=== PATIENT | female | born 1940 | race Caucasian/White ===

== ENCOUNTER 2017-05-07 10:22 | Inpatient (IN) | payer MEDICARE, BC ==
--- NOTE | 2017-05-07 10:25 | EDM.PDOC ---
ED HPI GENERAL MEDICAL PROBLEM - General Stated Complaint: IN BY AMBULANCE Time Seen by Provider: 05/07/17 10:00 Source of Information: Reports: Patient, EMS History Limitations: Reports: No Limitations - History of Present Illness INITIAL COMMENTS - FREE TEXT/NARRATIVE: This 76 yo female patient was brought to the ED by [facility] service due to a fall down 3 steps. EMS report that the patient reported a loss of consciousness for about 15 minutes, but was up walking around with assistance. The patient reports pain in the left side of her head, in her neck, in her left shoulder, in her upper back and in the left side of her chest. The patient reports she was taking out the garbage when she fell down the steps in her garage. The patient arrived with a KED applied for comfort and immobilization of her neck. The patient did not have c-collar in place. The patient was able to move all extremities and was alert and oriented x3. Onset: Today Duration: Minutes: Location: Reports: Head, Neck, Chest, Back (upper back ), Upper Extremity, Left (shoulder) Quality: Reports: Ache, Sharp Severity: Severe Improves with: Reports: Rest Worsens with: Reports: Breathing Context: Reports: Trauma (fall down 3 steps with possible loss of consciousness) Middle Chest Pain Score (Numeric/FACES): 10 - Related Data Allergies Allergy/AdvReac Type Severity Reaction Status Date / Time amoxicillin trihydrate Allergy Rash Verified 05/07/17 11:02 [From Augmentin] metformin Allergy Diarrhea Verified 05/07/17 11:02 oxytetracycline Allergy Rash Verified 05/07/17 11:02 [From Terramycin] oxytetracycline HCl Allergy Rash Verified 05/07/17 11:02 [From Terramycin] potassium clavulanate Allergy Rash Verified 05/07/17 11:02 [From Augmentin] Past Medical History HEENT History: Reports: Impaired Vision Cardiovascular History: Reports: High Cholesterol, Hypertension Gastrointestinal History: Reports: GERD Musculoskeletal History: Reports: Other (See Below) Other Musculoskeletal History: bursitis to B/L knee Endocrine/Metabolic History: Reports: Diabetes, Type II Oncologic (Cancer) History: Reports: Breast - Infectious Disease History Infectious Disease History: Reports: Shingles - Past Surgical History GI Surgical History: Reports: Appendectomy, Cholecystectomy Female Surgical History: Reports: Hysterectomy Oncologic Surgical History: Reports: Mastectomy Social & Family History - Tobacco Use Smoking Status *Q: Never Smoker Second Hand Smoke Exposure: No - Recreational Drug Use Recreational Drug Use: No Review of Systems - Review of Systems Review Of Systems: ROS reveals no pertinent complaints other than HPI. ED EXAM, GENERAL - Physical Exam Exam: See Below Exam Limited By: No Limitations General Appearance: Alert, WD/WN, Moderate Distress Eye Exam: Bilateral Eye: EOMI, Normal Inspection, PERRL Ears: Normal External Exam, Normal Canal, Hearing Grossly Normal Nose: Normal Inspection, Normal Mucosa, No Blood Throat/Mouth: Normal Inspection, Normal Lips, Normal Oropharynx, Normal Voice, No Airway Compromise Head: Other (tenderness to the left occipital and posterior scalp) Neck: Tender Lateral, Tender Midline Respiratory/Chest: No Respiratory Distress, Lungs Clear, Other (generalized chest wall tenderness) Cardiovascular: Normal Peripheral Pulses, Regular Rate, Rhythm, No Edema, No Gallop, No JVD, No Murmur, No Rub GI/Abdominal: Normal Bowel Sounds, Soft, Non-Tender, No Organomegaly, No Distention (Female) Exam: Deferred Rectal (Female) Exam: Deferred Back Exam: Paraspinal Tenderness (upper back), Vertebral Tenderness (upper back) Extremities: Normal Range of Motion, Non-Tender, Normal Capillary Refill, Arm Pain (left shoulder), Limited Range of Motion (due to left shoulder pain) Neurological: Alert, CN II-XII Intact, Normal Cognition, Other (GCS - 15) Psychiatric: Normal Affect Skin Exam: Warm, Dry, Intact, Normal Color, No Rash Lymphatic: No Adenopathy Course - Orders/Labs/Meds Orders: Active Orders 24 hr Category Date Time Status Chest wo Cont [CT] Urgent Exams 05/07/17 10:26 Ordered Labs: Laboratory Tests 05/07/17 05/07/17 05/07/17 Range/Units 10:35 10:35 10:49 WBC 9.7 (5.0-10.0) 10^3/uL RBC 4.17 L (4.2-5.4) 10^6/uL Hgb 12.3 (12.0-16.0) g/dL Hct 36.2 L (37.0-47.0) % MCV 86.8 (80-100) fL MCH 29.5 (27.0-34.0) pg MCHC 34.0 (33.0-35.0) g/dL Plt Count 174 (150-450) 10^3/uL Neut % (Auto) 78.9 H (42.2-75.2) % Lymph % (Auto) 13.6 L (20.5-50.1) % [place] % (Auto) 6.3 (2-8) % Eos % (Auto) 1.0 (1.0-3.0) % Baso % (Auto) 0.2 (0.0-1.0) % Sodium 139 (135-145) mmol/L Potassium 4.0 (3.6-5.0) mmol/L Chloride 101 (101-111) mmol/L Carbon Dioxide 28.0 (21.0-31.0) mmol/L Anion Gap 14.0 BUN 14 (7-18) mg/dL Creatinine 0.8 (0.6-1.3) mg/dL Est Cr Clr Drug Dosing 55.13 mL/min Estimated GFR (MDRD) > 60 BUN/Creatinine Ratio 17.50 Glucose 212 H (74-105) mg/dL POC Glucose 204 H (83-110) mg/dl Calcium 9.8 (8.4-10.2) mg/dl Total Bilirubin 0.6 (0.2-1.0) mg/dL AST 66 H (10-42) IU/L ALT 57 (10-60) IU/L Alkaline Phosphatase 53 (42-121) IU/L Total Protein 6.8 (6.7-8.2) g/dl Albumin 3.9 (3.2-5.5) g/dl Globulin 2.9 Albumin/Globulin Ratio 1.34 Meds: Medications Discontinued Medications Generic Name Dose Route Start Last Admin Trade Name Freq PRN Reason Stop Dose Admin Morphine Sulfate 2 mg 05/07/17 10:36 05/07/17 10:40 Morphine IVPUSH 05/07/17 10:37 2 mg ONETIME ONE Administration Morphine Sulfate 2 mg 05/07/17 11:21 05/07/17 11:26 Morphine IVPUSH 05/07/17 11:22 2 mg ONETIME ONE Administration - Re-Assessments/Exams Free Text/Narrative Re-Assessment/Exam: 05/07/17 10:40 While the patient was in CT, it became necessary to remove the KED and the padding behind the patient's head and neck. The KED was loosened and a C-collar was placed for support of the patient's c-spine. Departure - Departure Time of Disposition: 11:38 Disposition: Admitted As Inpatient 65 Condition: Fair Clinical Impression: Pneumothorax on left, Fall from ground level Left rib fracture Qualifiers: Encounter type: initial encounter Rib fracture type: single rib Fracture type: closed Qualified Code(s): S22.32XA - Fracture of one rib, left side, initial encounter for closed fracture Contusion of forehead Qualifiers: Encounter type: initial encounter Qualified Code(s): S00.83XA - Contusion of other part of head, initial encounter Back pain, thoracic Qualifiers: Chronicity: acute Back pain laterality: midline Qualified Code(s): M54.6 - Pain in thoracic spine - Discharge Information Care Plan Goals: Discussed the examination, lab and CT results with Dr. Dickey. Dr. Dickey accepted the patient for continued treatment as an inpatient at [facility] in [place]. - My Orders Last 24 Hours: My Active Orders 05/07/17 10:26 Chest wo Cont [CT] Urgent - Assessment/Plan Last 24 Hours: My Active Orders 05/07/17 10:26 Chest wo Cont [CT] Urgent
[2017-05-07] MEDS ORDERED: Morphine 2 MG/ML Syringe IVPUSH ONE ×2 (10:36→11:21)
--- NOTE | 2017-05-07 10:59 | CT ---
CLINICAL HISTORY: 74-year-old female with loss of consciousness associated with fall (trauma left la e of head, neck and upper chest). SCAN TECHNIQUE: Volume acquisition of data from an emergency unenhanced CT scan of the head obtained with the patient lying supine on the Siemens multislice CT scanner [place], [place]. Motion artifact but all data archived in the PACS system for storage, and study (bone/ brain windows). INTERPRETATION: 1. Uniformly thick bony calvarium without sign of skull fracture, underlying brain contusion or epidu ral/subdural hematoma. 2. Extensive multi-infarct ischemic lesions scattered throughout the periventricular white matter of both cerebral hemispheres. 3. Age-appropriate atrophy with underlying mirror-image normal ventricular system. 4. Physiologic midline pineal and symmetric choroid plexus calcifications. 5. No supratentorial or posterior fossa mass lesion. No hydrocephalus. 6. No sign of acute intracerebral/intraventricular/subarachnoid bleed. 7. Paranasal and mastoid sinuses symmetrically clear. CONCLUSION: Extensive multi-infarct ischemic disease. No sign of acute skull fracture or closed head injury.
[2017-05-07 11:03] LABS: CHLORIDE,CL 101 mmol/L (101-111); SODIUM,NA 139 mmol/L (135-145)
--- NOTE | 2017-05-07 11:11 | CT ---
CLINICAL HISTORY: 76-year-old female injured in a fall (15 minutes loss of consciousness this patient who injured left side of head and neck). SCAN TECHNIQUE: Volume acquisition of data from an unenhanced CT scan of the cervical spine obtained with the patient lying supine on the Siemens multislice scanner [facility]. All data archived in the PACS system for storage, reformatting and study. INTERPRETATION: Normal height and alignment of the 7 cervical (exaggerated lordosis) and first 2 thor acic vertebra. No sign of prevertebral soft tissue swelling, cervical fracture, spondylolisthesis or jumped locked f acet. Chronic reactive sclerosis of the articulating facets posteriorly, bilaterally. No basal skull fracture. TMJs unremarkable. Medial clavicles unremarkable but there appears to be *ab normal infraclavicular subcutaneous air present on the left. CONCLUSION: No cervical fracture or dislocation. Abnormal air collection infraclavicular on the left.
--- NOTE | 2017-05-07 11:20 | CT ---
CLINICAL HISTORY: 76-year-old female who injured left side head, neck and upper thorax in a fall (los s of consciousness). SCAN TECHNIQUE: Volume acquisition of data from an emergency unenhanced CT scan of the thoracic spine and thorax obtained while the patient was lying supine on the Siemens multislice scanner [facility]. All data archived in the PACS system for storage, reformatting ax ial/sagittal/coronal planes and study. INTERPRETATION: Abnormal. 1. Abnormal collection of air in the superior mediastinum extending around the first costochondral ju ncture and up under the medial aspect of the ipsilateral left clavicle. 2. *Tiny apical pneumothorax, on the left, with underlying ipsilateral left-sided lingular atelectasi s. No infiltrates. 3. Nondisplaced fracture anterolateral left second rib. No other obvious rib fracture this patient wh o has had previous left mastectomy (ipsilateral left breast prosthesis anterior chest wall) 4. Exaggerated cervical lordosis and severe kyphosis osteoporotic patient with multilevel disc diseas e and chronic hypertrophic spondylosis of the spine. No sign of thoracic fracture or spondylolisthesi s. No paraspinal soft tissue mass or hematoma. 5. Old trauma distal end of the right clavicle with arthritis at the acromioclavicular joint. No acut e left clavicular fracture or dislocation. No scapular fractures or sign of humeral head fracture/gle nohumeral dislocation either shoulder. 6. Calcifications arch of the ectatic aorta. Normal cardiac silhouette (no pericardial effusion). No alveolar edema or pleural effusion. 7. Large hiatus hernia incarcerated in the lower middle mediastinum. Cholecystectomy. Upper abdominal viscera unremarkable.
--- NOTE | 2017-05-07 11:53 | CT ---
CLINICAL HISTORY: 76-year-old female injured in a fall (loss of consciousness), i.e., trauma left la e of head, neck and upper chest. SCAN TECHNIQUE: Volume acquisition of data from an emergency unenhanced CT scan of the chest (bony th orax, lungs and mediastinum) obtained while the patient was lying supine on the Siemens multislice [place], [place]. All data archived in the PACS system for [employer], reformatting and study (bone, lung and mediastinal windows). INTERPRETATION: Abnormal. 1. Exaggerated cervical lordosis, severe kyphoscoliosis dorsal spine, signs of multilevel disc diseas e and chronic hypertrophic arthritic changes. Osteoporosis and insufficiency fractures several adjace nt mid thoracic vertebra (T7 vertebra most compressed but old and unchanged since lateral comparison film 09 October 2011). No fracture left clavicle and the left shoulder girdle is intact. 2. Left mastectomy (anterior chest wall prosthesis) 3. *Acute nondisplaced anterior left second rib fracture with some surrounding subcutaneous emphysema and tiny ipsilateral left apical pneumothorax. 4. Normal cardiac silhouette without cephalization of vascular flow, signs of alveolar edema or depen dent pleural effusion. 5. No pericardial effusion. No lung mass, hilar lymphadenopathy or focal lobar pneumonia. 6. Upper abdominal viscera unremarkable.
[2017-05-07] MEDS ORDERED: traMADol 50 MG Tab PO PRN (12:06)
[2017-05-07] MEDS ORDERED: Cyclobenzaprine 10 MG Tab PO PRN (12:07)
[2017-05-07] MEDS ORDERED: Acetaminophen 325 MG Tab PO PRN (12:09)
[2017-05-07] MEDS ORDERED: Ondansetron 4 MG/2 ML SDV IVPUSH PRN (12:10)
[2017-05-07] MEDS ORDERED: Sodium Chloride 0.9% 10 ML Syringe FLUSH PRN (12:10)
[2017-05-07] MEDS ORDERED: Insulin Aspart 100 Units/ML 3 ML Pen SUBCUT SCH (12:15)
--- NOTE | 2017-05-07 12:21 | PCM.HP ---
H&P History of Present Illness - General Date of Service: 05/07/17 Admit Problem/Dx: Admission Diagnosis/Problem Admission Diagnosis/Problem Fall - History of Present Illness Initial Comments - Free Text/Narative: The patient is a 76-year-old lady with a history of diabetes, hypertension, dyslipidemia, breast cancer. The patient has been in good health recently. She was taking the trash out to the attached garage. She lost balance and fell down from the steps. She landed on hard concrete after falling about 3 steps height. She probably lost consciousness because when she woke up on the ground and checked at that time she thinks she lost about 15 minutes. She was not able to get up on her own because of diffuse pain. She was able to call friends. When friend has arrived she was helped up from the floor and had into the house. She was outside in an unheated garage probably about 20-30 minutes wearing on his sweater. Plan friend and family arrived she was able to move all extremities, speech was clear. She was complaining of left-sided headache and left shoulder pain. She was brought into the emergency room. She had multiple CTs. No ambulance services are available to trauma Center in [place] due to weather. She is complaining of spasm-like pain in the back, pain in the left shoulder. Middle Chest Pain Score (Numeric/FACES): 10 - Related Data Allergies/Adverse Reactions: Allergies Allergy/AdvReac Type Severity Reaction Status Date / Time amoxicillin trihydrate Allergy Rash Verified 05/07/17 12:19 [From Augmentin] metformin Allergy Diarrhea Verified 05/07/17 12:19 oxytetracycline Allergy Rash Verified 05/07/17 12:19 [From Terramycin] oxytetracycline HCl Allergy Rash Verified 05/07/17 12:19 [From Terramycin] potassium clavulanate Allergy Rash Verified 05/07/17 12:19 [From Augmentin] Home Medications: Home Meds Amitriptyline [Elavil] 12.5 mg PO BEDTIME 05/07/17 [History] Aspirin [Adult Low Dose Aspirin EC] 81 mg PO DAILY 05/07/17 [History] Insulin Aspart [NovoLOG] 20 units SUBCUT TIDMEALS 05/07/17 [History] Insulin Glarg,Human.Rec.Analog [Lantus Solostar] 16 units SUBCUT BEDTIME [History] Omeprazole 20 mg PO DAILY 05/07/17 [History] Tamoxifen Citrate 20 mg PO DAILY 05/07/17 [History] Valsartan/Hydrochlorothiazide [Valsartan-Hctz 320-25 mg Tab] 0.5 each PO DAILY 05/07/17 [History] atorvaSTATin [Lipitor] 10 mg PO BEDTIME 05/07/17 [History] Past Medical History HEENT History: Reports: Impaired Vision Cardiovascular History: Reports: High Cholesterol, Hypertension Gastrointestinal History: Reports: GERD Musculoskeletal History: Reports: Other (See Below) Other Musculoskeletal History: bursitis to B/L knee Endocrine/Metabolic History: Reports: Diabetes, Type II Oncologic (Cancer) History: Reports: Breast - Infectious Disease History Infectious Disease History: Reports: Shingles - Past Surgical History GI Surgical History: Reports: Appendectomy, Cholecystectomy Female Surgical History: Reports: Hysterectomy Oncologic Surgical History: Reports: Mastectomy Social & Family History - Family History Neurological: Reports: CVA - Tobacco Use Smoking Status *Q: Never Smoker Second Hand Smoke Exposure: No - Recreational Drug Use Recreational Drug Use: No H&P Review of Systems - Review of Systems: Review Of Systems: See Below General: Denies: Fever, Chills Pulmonary: Denies: Shortness of Breath Cardiovascular: Reports: Chest Pain (Left upper shoulder area) Gastrointestinal: Denies: Abdominal Pain Genitourinary: Denies: Dysuria Musculoskeletal: Reports: Shoulder Pain (Left side), Back Pain Neurological: Denies: Confusion, Dizziness Exam - Exam Exam: See Below - Vital Signs Weight: 74.843 kg - Exam General: Alert, Oriented HEENT: EOMI Neck: Supple Lungs: Clear to Auscultation, Normal Respiratory Effort Cardiovascular: Regular Rate, Regular Rhythm Extremities: Pedal Edema (Trace bilateral) Skin: Warm, Dry Neuro Extensive - Mental Status: Alert, Oriented x3, Normal Mood/Affect, Normal Cognition, Memory Intact Neuro Extensive - Motor, Sensory, Reflexes: No: Abnormal Motor, Motor/Sensory Deficits Psychiatric: Alert, Normal Affect, Normal Mood - Patient Data Result Diagrams: 05/07/17 10:35 05/07/17 10:35 Imaging Impressions Last 24 hrs: CT of the head: extensive multi-infarct ischemic disease no sign of acute skull fracture or closed head injury CT of the cervical spine without contrast showed no cervical fracture or dislocation. Abnormal air collection infraclavicular on the left. CT of the chest without contrast osteoporosis and insufficiency fractures several adjacent mid thoracic vertebra. T7 most compressed, appears old and unchanged since comparison 2011. Acute nondisplaced anterior left second rib fracture with some surrounding subcutaneous emphysema and tiny ipsilateral left apical pneumothorax. Thoracic spine abnormal collection of air in the superior mediastinum extending around the first costochondral juncture and off under the medial aspect of the ipsilateral left clavicle. Nondisplaced fracture of the anterolateral left second rib with tiny apical pneumothorax. Large hiatal hernia." *Q Meaningful Use (ADM) - VTE *Q VTE Criteria *Q: - Stroke *Q Stroke Criteria *Q: - AMI *Q AMI Criteria *Q: - Problem List (1) Contusion of forehead SNOMED Code(s): 470280792 ICD Code: S00.83XA - CONTUSION OF OTHER PART OF HEAD, INITIAL ENCOUNTER Status: Acute Current Visit: Yes Qualifiers: Encounter type: initial encounter Qualified Code(s): S00.83XA - Contusion of other part of head, initial encounter (2) Left rib fracture SNOMED Code(s): 30176088 ICD Code: S22.32XA - FRACTURE OF ONE RIB, LEFT SIDE, INIT FOR CLOS FX Status: Acute Current Visit: Yes Qualifiers: Encounter type: initial encounter Rib fracture type: single rib Fracture type: closed Qualified Code(s): S22.32XA - Fracture of one rib, left side, initial encounter for closed fracture (3) Pneumothorax on left SNOMED Code(s): 416014035 ICD Code: J93.9 - PNEUMOTHORAX, UNSPECIFIED Status: Acute Current Visit: Yes (4) Back pain SNOMED Code(s): 927290725 ICD Code: M54.9 - DORSALGIA, UNSPECIFIED Status: Acute Current Visit: No Qualifiers: Back pain location: low back pain Chronicity: acute Back pain laterality : unspecified Sciatica presence: without sciatica Qualified Code(s): M54.5 - Low back pain Problem List Initiated/Reviewed/Updated: Yes Orders Last 24hrs: Active Orders 24 hr Category Date Time Status Patient Status [ADT] Routine ADT 05/07/17 12:10 Ordered Antiembolic Devices [RC] PER UNIT ROUTINE Care 05/07/17 12:12 Ordered Oxygen Therapy [RC] PRN Care 05/07/17 12:10 Ordered Peripheral IV Care [RC] . DIRECTED Care 05/07/17 12:13 Ordered Up With Assistance [RC] ASDIRECTED Care 05/07/17 12:10 Ordered VTE/DVT Education [RC] PER UNIT ROUTINE Care 05/07/17 12:10 Ordered Vital Signs [RC] Q4H Care 05/07/17 12:10 Ordered OT Evaluation and Treatment [CONS] Routine Cons 05/07/17 12:07 Active PT Evaluation and Treatment [CONS] Routine Cons 05/07/17 12:07 Active Consistent Carbohydrate Diet [DIET] Diet 05/07/17 Dinner Ordered Chest 2V [CR] Urgent Exams 05/07/17 12:08 Ordered BASIC METABOLIC PANEL,BMP [CHEM] AM Lab 05/08/17 05:15 Ordered CBC WITH AUTO DIFF [HEME] AM Lab 05/08/17 05:15 Ordered CK W CKMB [CHEM] AM Lab 05/08/17 05:11 Ordered Acetaminophen [Tylenol] Med 05/07/17 12:09 Active 650 mg PO .Q4 PRN Cyclobenzaprine [Flexeril] Med 05/07/17 12:07 Active 10 mg PO .Q6 PRN Docusate Sodium [Colace] Med 05/07/17 12:10 Ordered 100 mg PO BID PRN Heparin Sodium Med 05/07/17 21:00 Ordered 5,000 units SUBCUT Q8HR Ondansetron [Zofran] Med 05/07/17 12:10 Ordered 4 mg IVPUSH Q6H PRN Sodium Chloride 0.9% [Saline Flush] Med 05/07/17 12:10 Ordered 10 ml FLUSH ASDIRECTED PRN Temazepam [Restoril] Med 05/07/17 12:10 Ordered 15 mg PO BEDTIME PRN traMADol [Ultram] Med 05/07/17 12:06 Active 50 mg PO .Q6H PRN Peripheral IV Insertion Adult [OM.PC] Routine Oth 05/07/17 12:10 Ordered Saline Lock Insert [OM.PC] Routine Oth 05/07/17 12:10 Ordered Sequential Compression Device [OM.PC] Per Unit Routine Oth 05/07/17 12:12 Ordered Resuscitation Status Routine Resus Stat 05/07/17 12:10 Ordered Medication Orders Acetaminophen (Tylenol) 650 mg PO .Q4 PRN PRN Reason: pain, fever Cyclobenzaprine HCl (Flexeril) 10 mg PO .Q6 PRN PRN Reason: Muscle Spasm Docusate Sodium (Colace) 100 mg PO BID PRN PRN Reason: Constipation Heparin Sodium (Porcine) (Heparin Sodium) 5,000 units SUBCUT Q8HR GO Insulin Aspart (Novolog) 0 unit SUBCUT TIDAC GO PRN Reason: Protocol Insulin Aspart (Novolog) 18 unit SUBCUT .QAC+HS GO Ondansetron HCl (Zofran) 4 mg IVPUSH Q6H PRN PRN Reason: Nausea/Vomiting Sodium Chloride (Saline Flush) 10 ml FLUSH ASDIRECTED PRN PRN Reason: Keep Vein Open Temazepam (Restoril) 15 mg PO BEDTIME PRN PRN Reason: Sleep Tramadol HCl (Ultram) 50 mg PO .Q6H PRN PRN Reason: Pain Assessment/Plan Comment:: Fall Likely resulting in loss of consciousness. Trauma due to fall resulting in left second rib fracture with associated pneumothorax, subcutaneous air. We'll monitor the patient closely. Repeat x-ray of the chest in the morning to evaluate size of pneumothorax. Treat with pain medication, physical and occupational therapy evaluation and treatment Diabetes Continue Lantus and NovoLog regimen Follow blood sugars Hypertension Treat with Losartan and hydrochlorothiazide Dyslipidemia Continue Lipitor Osteoporosis with prior vertebral fracture Start calcium and vitamin D History of breast cancer Continue tamoxifen DVT prophylaxis Will be with subcutaneous heparin Delayed administration of the first dose until this evening to make sure that there is no neurological deficit or bleeding developing.
[2017-05-07] MEDS: Acetaminophen 325 MG Tab PO PRN (15:36)
[2017-05-07] MEDS: Calcium Carbonate/Vitamin D3 1250 MG-200 Unit Tab PO SCH (17:41)
[2017-05-07] MEDS: Insulin Aspart 100 Units/ML 3 ML Pen SUBCUT SCH ×3 (17:41→23:48)
[2017-05-07] MEDS ORDERED: Heparin Sodium 5,000 Units/ML Vial SUBCUT SCH (21:00)
[2017-05-07] MEDS ORDERED: Insulin Detemir 100 Units/ML 3 ML Pen SUBCUT SCH (21:00)
[2017-05-07] MEDS: Amitriptyline 25 MG Tab PO SCH (21:54)
[2017-05-07] MEDS: Temazepam 15 MG Cap PO PRN (21:54)
[2017-05-07] MEDS: atorvaSTATin 10 MG Tab PO SCH (21:54)
[2017-05-07] MEDS: Cyclobenzaprine 10 MG Tab PO PRN (21:55)
[2017-05-07] MEDS: traMADol 50 MG Tab PO PRN (21:55)
[2017-05-08] MEDS: Acetaminophen 325 MG Tab PO PRN (00:59)
[2017-05-08] MEDS: traMADol 50 MG Tab PO PRN ×4 (04:11→23:15)
[2017-05-08] MEDS: Omeprazole 20 MG Cap.CR PO SCH (06:11)
[2017-05-08 07:09] LABS: ANION GAP 13.2; CHLORIDE,CL 100 mmol/L (101-111); SODIUM,NA 135 mmol/L (135-145)
[2017-05-08] MEDS: Insulin Aspart 100 Units/ML 3 ML Pen SUBCUT SCH ×6 (08:05→17:13)
[2017-05-08] MEDS: Cyclobenzaprine 10 MG Tab PO PRN ×3 (08:20→22:19)
[2017-05-08] MEDS: Aspirin 81 MG Tab.EC PO SCH (08:20)
[2017-05-08] MEDS: Hydrochlorothiazide 25 MG Tab PO SCH (08:20)
[2017-05-08] MEDS: Tamoxifen 10 MG Tab PO SCH (08:20)
[2017-05-08] MEDS: Calcium Carbonate/Vitamin D3 1250 MG-200 Unit Tab PO SCH ×2 (08:20→17:12)
--- NOTE | 2017-05-08 09:15 | CR ---
Clinical history: 76-year-old hospitalized female patient (second rib fracture and tiny apical pneumo thorax, on the left) after fall. Interpretation: PA, lateral chest films confirm left mastectomy and chronic anterior eventration right hemidiaphragm. Kyphosis and multilevel disc disease osteopenic dorsal spine. Subtle bibasilar dependent new subpulmonic pleural effusions but normal cardiac silhouette and no cur rent cephalization of vascular flow or signs of alveolar edema (compared to 09 October 2011 exam). No pneumothorax. No new lung mass or focal lobar pneumonia. Fine platelike atelectasis left base. No lobar collapse.
[2017-05-08] MEDS: Heparin Sodium 5,000 Units/ML Vial SUBCUT SCH ×2 (10:54→17:12)
--- NOTE | 2017-05-08 10:55 | PCM.PN ---
- General Info Date of Service: 05/08/17 Admission Dx/Problem (Free Text): Admission Diagnosis/Problem Admission Diagnosis/Problem Fall Subjective Update: She is feeling stiff, pain and spasms with movements. She needed to have to get out of bed into chair and bathroom. Nausea resolved. No associated headache except left temporal pain when chewing. No fever, shortness of breath - Review of Systems General: Denies: Fever Pulmonary: Denies: Shortness of Breath Cardiovascular: Reports: Chest Pain (Left upper chest) Gastrointestinal: Denies: Abdominal Pain Genitourinary: Denies: Dysuria - Patient Data Vitals - Most Recent: Last Vital Signs Temp 36.3 C 05/08/17 07:00 Pulse 79 05/08/17 07:00 Resp 20 05/08/17 07:00 BP 121/70 05/08/17 08:20 Pulse Ox 96 05/08/17 07:00 Weight - Most Recent: 74.843 kg I&O - Last 24 Hours: Intake & Output 05/07/17 05/08/17 05/08/17 22:59 06:59 14:59 Intake Total 240 Balance 240 Lab Results Last 24 Hours: Laboratory Results - last 24 hr 05/07/17 05/07/17 05/08/17 Range/Units 16:50 20:51 06:35 WBC 9.1 (5.0-10.0) 10^3/uL RBC 4.04 L (4.2-5.4) 10^6/uL Hgb 11.9 L (12.0-16.0) g/dL Hct 35.4 L (37.0-47.0) % MCV 87.6 (80-100) fL MCH 29.5 (27.0-34.0) pg MCHC 33.6 (33.0-35.0) g/dL Plt Count 116 L (150-450) 10^3/uL Neut % (Auto) 61.4 (42.2-75.2) % Lymph % (Auto) 27.7 (20.5-50.1) % Imperial % (Auto) 8.6 H (2-8) % Eos % (Auto) 2.0 (1.0-3.0) % Baso % (Auto) 0.3 (0.0-1.0) % Add Manual Diff Yes Neutrophils % (Manual) 51 (42-75) % Lymphocytes % (Manual) 34 (20-50) % Monocytes % (Manual) 11 H (2-8) % Eosinophils % (Manual) 3 (1-3) % Basophils % (Manual) 1 Toxic Granulation 1+ slight Platelet Estimate Decreased Sodium (135-145) mmol/L Potassium (3.6-5.0) mmol/L Chloride (101-111) mmol/L Carbon Dioxide (21.0-31.0) mmol/L Anion Gap BUN (7-18) mg/dL Creatinine (0.6-1.3) mg/dL Est Cr Clr Drug Dosing mL/min Estimated GFR (MDRD) Glucose (74-105) mg/dL POC Glucose 209 H 158 H (83-110) mg/dl Calcium (8.4-10.2) mg/dl Creatine Kinase (26-174) IU/L Creatine Kinase Index (0-2.4) % CK-MB (CK-2) (0.4-4.7) ng/mL 05/08/17 05/08/17 05/08/17 Range/Units 06:35 06:35 08:01 WBC (5.0-10.0) 10^3/uL RBC (4.2-5.4) 10^6/uL Hgb (12.0-16.0) g/dL Hct (37.0-47.0) % MCV (80-100) fL MCH (27.0-34.0) pg MCHC (33.0-35.0) g/dL Plt Count (150-450) 10^3/uL Neut % (Auto) (42.2-75.2) % Lymph % (Auto) (20.5-50.1) % Imperial % (Auto) (2-8) % Eos % (Auto) (1.0-3.0) % Baso % (Auto) (0.0-1.0) % Add Manual Diff Neutrophils % (Manual) (42-75) % Lymphocytes % (Manual) (20-50) % Monocytes % (Manual) (2-8) % Eosinophils % (Manual) (1-3) % Basophils % (Manual) Toxic Granulation Platelet Estimate Sodium 135 (135-145) mmol/L Potassium 4.2 (3.6-5.0) mmol/L Chloride 100 L (101-111) mmol/L Carbon Dioxide 26.0 (21.0-31.0) mmol/L Anion Gap 13.2 BUN 18 (7-18) mg/dL Creatinine 0.8 (0.6-1.3) mg/dL Est Cr Clr Drug Dosing 55.13 mL/min Estimated GFR (MDRD) > 60 Glucose 167 H (74-105) mg/dL POC Glucose 141 H (83-110) mg/dl Calcium 9.6 (8.4-10.2) mg/dl Creatine Kinase 237 H (26-174) IU/L Creatine Kinase Index 0.5 (0-2.4) % CK-MB (CK-2) 1.20 (0.4-4.7) ng/mL Med Orders - Current: Current Medications Acetaminophen (Tylenol) 650 mg PO Q4H PRN PRN Reason: pain, fever Last Admin: 05/08/17 00:59 Dose: 650 mg Amitriptyline HCl (Elavil) 12.5 mg PO BEDTIME [facility] Last Admin: 05/07/17 21:54 Dose: 12.5 mg Aspirin (Halfprin) 81 mg PO DAILY [facility] Last Admin: 05/08/17 08:20 Dose: 81 mg Atorvastatin Calcium (Lipitor) 10 mg PO BEDTIME [facility] Last Admin: 05/07/17 21:54 Dose: 10 mg Calcium Carbonate (Calcium Carbonate/Vitamin D 1250 Mg-200 Unit) 1 tab PO BIDMEALS [facility] Last Admin: 05/08/17 08:20 Dose: 1 tab Cyclobenzaprine HCl (Flexeril) 10 mg PO Q6H PRN PRN Reason: Muscle Spasm Last Admin: 05/08/17 08:20 Dose: 10 mg Docusate Sodium (Colace) 100 mg PO BID PRN PRN Reason: Constipation Heparin Sodium (Porcine) (Heparin Sodium) 5,000 units SUBCUT Q8H [facility] Hydrochlorothiazide (Hydrochlorothiazide) 12.5 mg PO DAILY [facility] Last Admin: 05/08/17 08:20 Dose: 12.5 mg Insulin Aspart (Novolog) 0 unit SUBCUT TIDAC [facility] PRN Reason: Protocol Last Admin: 05/08/17 08:05 Dose: Not Given Insulin Aspart (Novolog) 18 unit SUBCUT TIDAMID [facility] Last Admin: 05/08/17 08:21 Dose: 18 units Insulin Detemir (Levemir) 16 unit SUBCUT BEDTIME [facility] Omeprazole (Omeprazole) 20 mg PO ACBREAKFAST [facility] Last Admin: 05/08/17 06:11 Dose: 20 mg Ondansetron HCl (Zofran) 4 mg IVPUSH Q6H PRN PRN Reason: Nausea/Vomiting Last Admin: 05/07/17 15:35 Dose: 4 mg Sodium Chloride (Saline Flush) 10 ml FLUSH ASDIRECTED PRN PRN Reason: Keep Vein Open Last Admin: 05/07/17 21:20 Dose: 10 ml Tamoxifen Citrate (Nolvadex) 20 mg PO DAILY [facility] Last Admin: 05/08/17 08:20 Dose: 20 mg Temazepam (Restoril) 15 mg PO BEDTIME PRN PRN Reason: Sleep Last Admin: 05/07/17 21:54 Dose: 15 mg Tramadol HCl (Ultram) 50 mg PO Q6H PRN PRN Reason: Pain Last Admin: 05/08/17 04:11 Dose: 50 mg Valsartan (Diovan) 160 mg PO DAILY [facility] Last Admin: 05/08/17 08:20 Dose: 160 mg Discontinued Medications Acetaminophen (Tylenol) 650 mg PO .Q4 PRN PRN Reason: pain, fever Cyclobenzaprine HCl (Flexeril) 10 mg PO .Q6 PRN PRN Reason: Muscle Spasm Last Admin: 05/07/17 13:13 Dose: 10 mg Heparin Sodium (Porcine) (Heparin Sodium) 5,000 units SUBCUT Q8H [facility] Insulin Aspart (Novolog) 18 unit SUBCUT .QAC+HS [facility] Insulin Aspart (Novolog) 18 unit SUBCUT ACBED [facility] Last Admin: 05/07/17 23:48 Dose: Not Given Insulin Detemir (Levemir) 16 unit SUBCUT BEDTIME [facility] Last Admin: 05/07/17 22:12 Dose: 16 units Insulin Detemir (Levemir) 18 unit SUBCUT BEDTIME [facility] Morphine Sulfate (Morphine) 2 mg IVPUSH ONETIME ONE Stop: 05/07/17 10:37 Last Admin: 05/07/17 10:40 Dose: 2 mg Morphine Sulfate (Morphine) 2 mg IVPUSH ONETIME ONE Stop: 05/07/17 11:22 Last Admin: 05/07/17 11:26 Dose: 2 mg Tramadol HCl (Ultram) 50 mg PO .Q6H PRN PRN Reason: Pain Last Admin: 05/07/17 13:12 Dose: 50 mg - Exam General: Alert, Oriented Neck: Supple Lungs: Clear to Auscultation, Normal Respiratory Effort, Other (No subcutaneous crepitation) Cardiovascular: Regular Rate, Regular Rhythm GI/Abdominal Exam: Normal Bowel Sounds, Soft, Non-Tender Extremities: Pedal Edema (trace) Skin: Warm, Ecchymosis (Left temporal area), Other (Right hand thumb is swollen and tender to movement) - Problem List & Annotations (1) Contusion of forehead SNOMED Code(s): 533961107 Code(s): S00.83XA - CONTUSION OF OTHER PART OF HEAD, INITIAL ENCOUNTER Status: Acute Current Visit: Yes Qualifiers: Encounter type: initial encounter Qualified Code(s): S00.83XA - Contusion of other part of head, initial encounter (2) Left rib fracture SNOMED Code(s): 81470860 Code(s): S22.32XA - FRACTURE OF ONE RIB, LEFT SIDE, INIT FOR CLOS FX Status : Acute Current Visit: Yes Qualifiers: Encounter type: initial encounter Rib fracture type: single rib Fracture type: closed Qualified Code(s): S22.32XA - Fracture of one rib, left side, initial encounter for closed fracture (3) Pneumothorax on left SNOMED Code(s): 857318217 Code(s): J93.9 - PNEUMOTHORAX, UNSPECIFIED Status: Acute Current Visit: Yes (4) Back pain SNOMED Code(s): 056485592 Code(s): M54.9 - DORSALGIA, UNSPECIFIED Status: Acute Current Visit: No Qualifiers: Back pain location: low back pain Chronicity: acute Back pain laterality : unspecified Sciatica presence: without sciatica Qualified Code(s): M54.5 - Low back pain - Problem List Review Problem List Initiated/Reviewed/Updated: Yes - My Orders Last 24 Hours: My Active Orders 05/07/17 15:45 Acetaminophen [Tylenol] 650 mg PO Q4H PRN Cyclobenzaprine [Flexeril] 10 mg PO Q6H PRN traMADol [Ultram] 50 mg PO Q6H PRN 05/07/17 18:00 Calcium Carbonate/Vitamin D3 [Calcium Carbonate/Vitamin D 1250 MG-200 Unit] 1 tab PO BIDMEALS 05/07/17 21:00 Amitriptyline [Elavil] 12.5 mg PO BEDTIME atorvaSTATin [Lipitor] 10 mg PO BEDTIME 05/08/17 06:00 Omeprazole 20 mg PO ACBREAKFAST 05/08/17 08:00 Insulin Aspart [NovoLOG] 18 unit SUBCUT TIDAC 05/08/17 09:00 Aspirin [Halfprin] 81 mg PO DAILY Hydrochlorothiazide 12.5 mg PO DAILY Tamoxifen [Nolvadex] 20 mg PO DAILY Valsartan [Diovan] 160 mg PO DAILY 05/08/17 09:58 Cooling Warming Measures [RC] ASDIRECTED K Pad [Heat Therapy] [OM.PC] Routine 05/08/17 10:00 Heparin Sodium 5,000 units SUBCUT Q8H 05/08/17 10:48 Admission Status [Patient Status] [ADT] Routine 05/08/17 21:00 Insulin Detemir [Levemir] 16 unit SUBCUT BEDTIME - Plan Plan:: Fall Likely resulting in loss of consciousness, concussion. Trauma due to fall resulting in left second rib fracture with associated pneumothorax, subcutaneous air. No symptoms of intracranial bleeding developed. We'll monitor the patient closely. Repeat x-ray of the chest showed no pneumothorax. No shortness of breath. Will obtain right hand x-rays rule out fracture in the thumb area. Treat with pain medication, physical and occupational therapy evaluation and treatment Currently the patient needed assistance with minimal activities like getting out of bed. Diabetes Continue Lantus and NovoLog regimen Follow blood sugars Hypertension Treat with Losartan and hydrochlorothiazide Dyslipidemia Continue Lipitor Osteoporosis with prior vertebral fracture Continue calcium and vitamin D History of breast cancer Continue tamoxifen DVT prophylaxis Will be with subcutaneous heparin
[2017-05-08] MEDS: EYE EYELF SCH (12:27)
--- NOTE | 2017-05-08 14:11 | CR ---
Clinical history: 76-year-old female injured recent fall. Interpretation: AP lateral right hand and wrist confirm the presence of chronic severe arthritic dege nerative changes first carpal metacarpal and all interphalangeal/DIP joints of the thumb and fingers (ranging around the proximal phalanx fourth finger). No acute fracture or dislocation right hand or wrist.
[2017-05-08] MEDS: Amitriptyline 25 MG Tab PO SCH (20:52)
[2017-05-08] MEDS: Ascorbic Acid 500 MG Tab PO SCH (20:52)
[2017-05-08] MEDS: atorvaSTATin 10 MG Tab PO SCH (20:52)
[2017-05-08] MEDS: Insulin Detemir 100 Units/ML 3 ML Pen SUBCUT SCH (20:57)
[2017-05-08] MEDS ORDERED: Insulin Detemir 100 Units/ML 3 ML Pen SUBCUT SCH (21:00)
[2017-05-08] MEDS: Temazepam 15 MG Cap PO PRN (22:19)
[2017-05-09] MEDS: Heparin Sodium 5,000 Units/ML Vial SUBCUT SCH ×3 (05:33→21:35)
[2017-05-09] MEDS: Cyclobenzaprine 10 MG Tab PO PRN ×3 (05:33→20:29)
[2017-05-09] MEDS: Omeprazole 20 MG Cap.CR PO SCH (05:33)
[2017-05-09] MEDS: traMADol 50 MG Tab PO PRN ×3 (05:33→20:30)
[2017-05-09] MEDS: Calcium Carbonate/Vitamin D3 1250 MG-200 Unit Tab PO SCH ×2 (08:11→17:10)
[2017-05-09] MEDS: Insulin Aspart 100 Units/ML 3 ML Pen SUBCUT SCH ×6 (08:12→17:10)
[2017-05-09] MEDS: Calcium Polycarbophil 625 MG Tab PO SCH (08:17)
[2017-05-09] MEDS: Aspirin 81 MG Tab.EC PO SCH (08:17)
[2017-05-09] MEDS: Hydrochlorothiazide 25 MG Tab PO SCH (08:17)
[2017-05-09] MEDS: Multivitamins,Therapeutic Tab PO SCH (08:18)
[2017-05-09] MEDS: Ascorbic Acid 500 MG Tab PO SCH ×2 (08:18→20:28)
[2017-05-09] MEDS: Tamoxifen 10 MG Tab PO SCH (08:19)
[2017-05-09] MEDS: EYE EYELF SCH (08:22)
--- NOTE | 2017-05-09 10:39 | PCM.PN ---
- General Info Date of Service: 05/09/17 Admission Dx/Problem (Free Text): Admission Diagnosis/Problem Admission Diagnosis/Problem Fall Subjective Update: She is moving better. Continues to have moderate to severe left shoulder upper chest area pain. The pain is sharp or spasm-like. worse with movements. Non radiating. No associated shortness of breath. Functional Status: Reports: Tolerating Diet - Review of Systems General: Denies: Fever Pulmonary: Denies: Shortness of Breath Cardiovascular: Denies: Chest Pain Gastrointestinal: Denies: Abdominal Pain Neurological: Denies: Confusion - Patient Data Vitals - Most Recent: Last Vital Signs Temp 36.9 C 05/09/17 07:39 Pulse 86 05/09/17 07:39 Resp 20 05/09/17 07:39 BP 121/58 L 05/09/17 08:13 Pulse Ox 95 05/09/17 07:39 Weight - Most Recent: 74.843 kg I&O - Last 24 Hours: Intake & Output 05/08/17 05/09/17 05/09/17 22:59 06:59 14:59 Intake Total 200 450 Output Total 400 150 375 Balance -200 300 -375 Lab Results Last 24 Hours: Laboratory Results - last 24 hr 05/08/17 05/08/17 05/08/17 Range/Units 11:07 16:42 20:48 POC Glucose 165 H 150 H 149 H (83-110) mg/dl 05/09/17 Range/Units 07:44 POC Glucose 181 H (83-110) mg/dl Med Orders - Current: Current Medications Acetaminophen (Tylenol) 650 mg PO Q4H PRN PRN Reason: pain, fever Last Admin: 05/08/17 00:59 Dose: 650 mg Amitriptyline HCl (Elavil) 12.5 mg PO BEDTIME [facility] Last Admin: 05/08/17 20:52 Dose: 12.5 mg Ascorbic Acid (Vitamin C) 500 mg PO BID [facility] Last Admin: 05/09/17 08:18 Dose: 500 mg Aspirin (Halfprin) 81 mg PO DAILY [facility] Last Admin: 05/09/17 08:17 Dose: 81 mg Atorvastatin Calcium (Lipitor) 10 mg PO BEDTIME [facility] Last Admin: 05/08/17 20:52 Dose: 10 mg Calcium Carbonate (Calcium Carbonate/Vitamin D 1250 Mg-200 Unit) 1 tab PO BIDMEALS [facility] Last Admin: 05/09/17 08:11 Dose: 1 tab Calcium Polycarbophil (Fibercon) 625 mg PO DAILY [facility] Last Admin: 05/09/17 08:17 Dose: 625 mg Cyclobenzaprine HCl (Flexeril) 10 mg PO Q6H PRN PRN Reason: Muscle Spasm Last Admin: 05/09/17 05:33 Dose: 10 mg Docusate Sodium (Colace) 100 mg PO BID PRN PRN Reason: Constipation Heparin Sodium (Porcine) (Heparin Sodium) 5,000 units SUBCUT Q8HR [facility] Last Admin: 05/09/17 05:33 Dose: 5,000 units Hydrochlorothiazide (Hydrochlorothiazide) 12.5 mg PO DAILY [facility] Last Admin: 05/09/17 08:17 Dose: 12.5 mg Insulin Aspart (Novolog) 0 unit SUBCUT TIDAC [facility] PRN Reason: Protocol Last Admin: 05/09/17 08:12 Dose: 2 units Insulin Aspart (Novolog) 18 unit SUBCUT TIDAC [facility] Last Admin: 05/09/17 08:12 Dose: 18 units Insulin Detemir (Levemir) 16 unit SUBCUT BEDTIME [facility] Last Admin: 05/08/17 20:57 Dose: 16 units Multivitamins (Thera) 1 each PO DAILY [facility] Last Admin: 05/09/17 08:18 Dose: 1 each Omeprazole (Omeprazole) 20 mg PO ACBREAKFAST [facility] Last Admin: 05/09/17 05:33 Dose: 20 mg Ondansetron HCl (Zofran) 4 mg IVPUSH Q6H PRN PRN Reason: Nausea/Vomiting Last Admin: 05/07/17 15:35 Dose: 4 mg Eye DropPt's Own (Med) 0 each EYELF DAILY [facility] Last Admin: 05/09/17 08:22 Dose: 1 each Sodium Chloride (Saline Flush) 10 ml FLUSH ASDIRECTED PRN PRN Reason: Keep Vein Open Last Admin: 05/07/17 21:20 Dose: 10 ml Tamoxifen Citrate (Nolvadex) 20 mg PO DAILY [facility] Last Admin: 05/09/17 08:19 Dose: 20 mg Temazepam (Restoril) 15 mg PO BEDTIME PRN PRN Reason: Sleep Last Admin: 05/08/17 22:19 Dose: 15 mg Tramadol HCl (Ultram) 50 mg PO Q6H PRN PRN Reason: Pain Last Admin: 05/09/17 05:33 Dose: 50 mg Valsartan (Diovan) 160 mg PO DAILY [facility] Last Admin: 05/09/17 08:13 Dose: 160 mg Discontinued Medications Acetaminophen (Tylenol) 650 mg PO .Q4 PRN PRN Reason: pain, fever Cyclobenzaprine HCl (Flexeril) 10 mg PO .Q6 PRN PRN Reason: Muscle Spasm Last Admin: 05/07/17 13:13 Dose: 10 mg Heparin Sodium (Porcine) (Heparin Sodium) 5,000 units SUBCUT Q8H [place] Heparin Sodium (Porcine) (Heparin Sodium) 5,000 units SUBCUT Q8H [facility] Last Admin: 05/08/17 17:12 Dose: 5,000 units Insulin Aspart (Novolog) 18 unit SUBCUT .QAC+HS [facility] Insulin Aspart (Novolog) 18 unit SUBCUT ACBED [facility] Last Admin: 05/07/17 23:48 Dose: Not Given Insulin Detemir (Levemir) 16 unit SUBCUT BEDTIME [facility] Last Admin: 05/07/17 22:12 Dose: 16 units Insulin Detemir (Levemir) 18 unit SUBCUT BEDTIME [facility] Morphine Sulfate (Morphine) 2 mg IVPUSH ONETIME ONE Stop: 05/07/17 10:37 Last Admin: 05/07/17 10:40 Dose: 2 mg Morphine Sulfate (Morphine) 2 mg IVPUSH ONETIME ONE Stop: 05/07/17 11:22 Last Admin: 05/07/17 11:26 Dose: 2 mg Tramadol HCl (Ultram) 50 mg PO .Q6H PRN PRN Reason: Pain Last Admin: 05/07/17 13:12 Dose: 50 mg - Exam General: Alert, Oriented Neck: Supple Lungs: Clear to Auscultation, Normal Respiratory Effort GI/Abdominal Exam: Normal Bowel Sounds, Soft, Non-Tender Extremities: No Pedal Edema, Limited Range of Motion (Of left shoulder) Skin: Warm, Dry, Other (No crepitation or subcutaneous air noted in the left shoulder area) Neurological: No New Focal Deficit Psy/Mental Status: Alert, Normal Affect, Normal Mood - Problem List & Annotations (1) Contusion of forehead SNOMED Code(s): 636524343 Code(s): S00.83XA - CONTUSION OF OTHER PART OF HEAD, INITIAL ENCOUNTER Status: Acute Current Visit: Yes Qualifiers: Encounter type: initial encounter Qualified Code(s): S00.83XA - Contusion of other part of head, initial encounter (2) Left rib fracture SNOMED Code(s): 15424313 Code(s): S22.32XA - FRACTURE OF ONE RIB, LEFT SIDE, INIT FOR CLOS FX Status : Acute Current Visit: Yes Qualifiers: Encounter type: initial encounter Rib fracture type: single rib Fracture type: closed Qualified Code(s): S22.32XA - Fracture of one rib, left side, initial encounter for closed fracture (3) Pneumothorax on left SNOMED Code(s): 811590947 Code(s): J93.9 - PNEUMOTHORAX, UNSPECIFIED Status: Acute Current Visit: Yes (4) Back pain SNOMED Code(s): 261040001 Code(s): M54.9 - DORSALGIA, UNSPECIFIED Status: Acute Current Visit: No Qualifiers: Back pain location: low back pain Chronicity: acute Back pain laterality : unspecified Sciatica presence: without sciatica Qualified Code(s): M54.5 - Low back pain - Problem List Review Problem List Initiated/Reviewed/Updated: Yes - My Orders Last 24 Hours: My Active Orders 05/08/17 10:55 Antiembolic Devices [RC] PER UNIT ROUTINE [place] Hose [Antiembolic Hose] [OM.PC] Routine 05/08/17 11:15 Patient's Own Medication [Ptom] 0 each EYELF DAILY 05/08/17 16:39 RT Incentive Spirometry [RC] ASDIRECTED 05/08/17 21:00 Ascorbic Acid [Vitamin C] 500 mg PO BID 05/09/17 06:00 Heparin Sodium 5,000 units SUBCUT Q8HR 05/09/17 09:00 Calcium Polycarbophil [Fibercon] 625 mg PO DAILY Multivitamins,Therapeutic [Thera] 1 each PO DAILY 05/10/17 05:15 BASIC METABOLIC PANEL,BMP [CHEM] AM CBC WITH AUTO DIFF [HEME] AM - Plan Plan:: Fall Likely resulting in loss of consciousness, concussion. Trauma due to fall resulting in left second rib fracture with associated pneumothorax, subcutaneous air. No symptoms of intracranial bleeding developed. Repeat x-ray of the chest showed no pneumothorax. No shortness of breath. Right hand x-rays showed no fx will obtain left shoulder dedicated x-ray to rule out fracture She certainly could have suffered a rotator cuff injury. If no improvement in MRI can be considered later. Treat with pain medication, physical and occupational therapy evaluation and treatment, heat therapy Currently the patient needed assistance with minimal activities like getting out of bed. Diabetes Continue Lantus and NovoLog regimen Follow blood sugars Hypertension Treat with Losartan and hydrochlorothiazide Dyslipidemia Continue Lipitor Osteoporosis with prior vertebral fracture Continue calcium and vitamin D History of breast cancer Continue tamoxifen DVT prophylaxis Will be with subcutaneous heparin
--- NOTE | 2017-05-09 12:47 | CR ---
Clinical history: 76-year-old female with left shoulder pain (fall). Interpretation: Surgical clips left axilla consistent with mastectomy. No sign of left shoulder fracture, acromioclavicular separation or glenohumeral dislocation. "Second rib fracture" (CT scan) not appreciated on these plain films. No apical pneumothorax apprecia jo on the left.
[2017-05-09] MEDS: Docusate Sodium 100 MG Cap PO PRN (20:28)
[2017-05-09] MEDS: atorvaSTATin 10 MG Tab PO SCH (20:29)
[2017-05-09] MEDS: Amitriptyline 25 MG Tab PO SCH (20:29)
[2017-05-09] MEDS: Acetaminophen 325 MG Tab PO PRN (21:32)
[2017-05-09] MEDS: Temazepam 15 MG Cap PO PRN (21:32)
[2017-05-09] MEDS: Insulin Detemir 100 Units/ML 3 ML Pen SUBCUT SCH (21:33)
[2017-05-10] MEDS: Omeprazole 20 MG Cap.CR PO SCH (06:01)
[2017-05-10] MEDS: Heparin Sodium 5,000 Units/ML Vial SUBCUT SCH ×3 (06:02→21:27)
[2017-05-10] MEDS: traMADol 50 MG Tab PO PRN ×3 (06:08→20:46)
[2017-05-10] MEDS: Cyclobenzaprine 10 MG Tab PO PRN ×3 (06:08→20:45)
[2017-05-10 07:27] LABS: ANION GAP 13.5; CHLORIDE,CL 97 mmol/L (101-111); SODIUM,NA 135 mmol/L (135-145)
[2017-05-10] MEDS: Ascorbic Acid 500 MG Tab PO SCH ×2 (08:57→20:46)
[2017-05-10] MEDS: Calcium Carbonate/Vitamin D3 1250 MG-200 Unit Tab PO SCH ×2 (08:57→17:49)
[2017-05-10] MEDS: Aspirin 81 MG Tab.EC PO SCH (08:58)
[2017-05-10] MEDS: Multivitamins,Therapeutic Tab PO SCH (08:58)
[2017-05-10] MEDS: Calcium Polycarbophil 625 MG Tab PO SCH (08:58)
[2017-05-10] MEDS: Docusate Sodium 100 MG Cap PO PRN ×2 (08:58→20:46)
[2017-05-10] MEDS: Tamoxifen 10 MG Tab PO SCH (08:59)
[2017-05-10] MEDS: Hydrochlorothiazide 25 MG Tab PO SCH (08:59)
[2017-05-10] MEDS: EYE EYELF SCH (09:00)
[2017-05-10] MEDS: Insulin Aspart 100 Units/ML 3 ML Pen SUBCUT SCH ×6 (09:01→17:50)
[2017-05-10] MEDS: Acetaminophen 325 MG Tab PO PRN (09:03)
[2017-05-10] MEDS ORDERED: Potassium Chloride 10 MEQ Tab.ER PO ONE (10:45)
--- NOTE | 2017-05-10 10:52 | PCM.PN ---
- General Info Date of Service: 05/10/17 Admission Dx/Problem (Free Text): Admission Diagnosis/Problem Admission Diagnosis/Problem Fall Subjective Update: She is moving better. working with PT Continues to have moderate to severe left shoulder upper chest area pain. The pain is sharp or spasm-like. worse with movements. Non radiating. No associated shortness of breath. had dry, non productive cough. - Review of Systems General: Reports: Weakness. Denies: Fever Pulmonary: Denies: Shortness of Breath Cardiovascular: Reports: Chest Pain (left upper, worse with movements of the shoulder) Gastrointestinal: Denies: Abdominal Pain Genitourinary: Denies: Dysuria - Patient Data Vitals - Most Recent: Last Vital Signs Temp 37.0 C 05/10/17 07:00 Pulse 94 05/10/17 07:00 Resp 20 05/10/17 07:00 BP 127/57 L 05/10/17 09:00 Pulse Ox 94 L 05/10/17 07:00 Weight - Most Recent: 74.843 kg I&O - Last 24 Hours: Intake & Output 05/09/17 05/10/17 05/10/17 22:59 06:59 14:59 Intake Total 200 100 Balance 200 100 Lab Results Last 24 Hours: Laboratory Results - last 24 hr 05/09/17 05/09/17 05/09/17 Range/Units 11:24 16:48 21:14 WBC (5.0-10.0) 10^3/uL RBC (4.2-5.4) 10^6/uL Hgb (12.0-16.0) g/dL Hct (37.0-47.0) % MCV (80-100) fL MCH (27.0-34.0) pg MCHC (33.0-35.0) g/dL Plt Count (150-450) 10^3/uL Neut % (Auto) (42.2-75.2) % Lymph % (Auto) (20.5-50.1) % Harnett % (Auto) (2-8) % Eos % (Auto) (1.0-3.0) % Baso % (Auto) (0.0-1.0) % Sodium (135-145) mmol/L Potassium (3.6-5.0) mmol/L Chloride (101-111) mmol/L Carbon Dioxide (21.0-31.0) mmol/L Anion Gap BUN (7-18) mg/dL Creatinine (0.6-1.3) mg/dL Est Cr Clr Drug Dosing mL/min Estimated GFR (MDRD) Glucose (74-105) mg/dL POC Glucose 211 H 114 H 194 H (83-110) mg/dl Calcium (8.4-10.2) mg/dl 05/10/17 05/10/17 05/10/17 Range/Units 07:00 07:00 08:04 WBC 8.5 (5.0-10.0) 10^3/uL RBC 3.93 L (4.2-5.4) 10^6/uL Hgb 11.4 L (12.0-16.0) g/dL Hct 34.8 L (37.0-47.0) % MCV 88.5 (80-100) fL MCH 29.0 (27.0-34.0) pg MCHC 32.8 L (33.0-35.0) g/dL Plt Count 163 (150-450) 10^3/uL Neut % (Auto) 61.5 (42.2-75.2) % Lymph % (Auto) 26.4 (20.5-50.1) % Harnett % (Auto) 9.5 H (2-8) % Eos % (Auto) 2.2 (1.0-3.0) % Baso % (Auto) 0.4 (0.0-1.0) % Sodium 135 (135-145) mmol/L Potassium 3.5 L (3.6-5.0) mmol/L Chloride 97 L (101-111) mmol/L Carbon Dioxide 28.0 (21.0-31.0) mmol/L Anion Gap 13.5 BUN 21 H (7-18) mg/dL Creatinine 0.8 (0.6-1.3) mg/dL Est Cr Clr Drug Dosing 55.13 mL/min Estimated GFR (MDRD) > 60 Glucose 172 H (74-105) mg/dL POC Glucose 173 H (83-110) mg/dl Calcium 8.9 (8.4-10.2) mg/dl Med Orders - Current: Current Medications Acetaminophen (Tylenol) 650 mg PO Q4H PRN PRN Reason: pain, fever Last Admin: 05/10/17 09:03 Dose: 650 mg Amitriptyline HCl (Elavil) 12.5 mg PO BEDTIME [facility] Last Admin: 05/09/17 20:29 Dose: 12.5 mg Ascorbic Acid (Vitamin C) 500 mg PO BID [facility] Last Admin: 05/10/17 08:57 Dose: 500 mg Aspirin (Halfprin) 81 mg PO DAILY [facility] Last Admin: 05/10/17 08:58 Dose: 81 mg Atorvastatin Calcium (Lipitor) 10 mg PO BEDTIME [facility] Last Admin: 05/09/17 20:29 Dose: 10 mg Calcium Carbonate (Calcium Carbonate/Vitamin D 1250 Mg-200 Unit) 1 tab PO BIDMEALS [facility] Last Admin: 05/10/17 08:57 Dose: 1 tab Calcium Polycarbophil (Fibercon) 625 mg PO DAILY [facility] Last Admin: 05/10/17 08:58 Dose: 625 mg Cyclobenzaprine HCl (Flexeril) 10 mg PO Q6H PRN PRN Reason: Muscle Spasm Last Admin: 05/10/17 06:08 Dose: 10 mg Docusate Sodium (Colace) 100 mg PO BID PRN PRN Reason: Constipation Last Admin: 05/10/17 08:58 Dose: 100 mg Heparin Sodium (Porcine) (Heparin Sodium) 5,000 units SUBCUT Q8HR [facility] Last Admin: 05/10/17 06:02 Dose: 5,000 units Hydrochlorothiazide (Hydrochlorothiazide) 12.5 mg PO DAILY [facility] Last Admin: 05/10/17 08:59 Dose: 12.5 mg Insulin Aspart (Novolog) 0 unit SUBCUT TIDAC [facility] PRN Reason: Protocol Last Admin: 05/10/17 09:02 Dose: 2 units Insulin Aspart (Novolog) 18 unit SUBCUT TIDAC [facility] Last Admin: 05/10/17 09:01 Dose: 18 units Insulin Detemir (Levemir) 16 unit SUBCUT BEDTIME [facility] Last Admin: 05/09/17 21:33 Dose: 16 units Multivitamins (Thera) 1 each PO DAILY [facility] Last Admin: 05/10/17 08:58 Dose: 1 each Omeprazole (Omeprazole) 20 mg PO ACBREAKFAST [facility] Last Admin: 05/10/17 06:01 Dose: 20 mg Ondansetron HCl (Zofran) 4 mg IVPUSH Q6H PRN PRN Reason: Nausea/Vomiting Last Admin: 05/07/17 15:35 Dose: 4 mg Eye DropPt's Own (Med) 0 each EYELF DAILY [facility] Last Admin: 05/10/17 09:00 Dose: 1 each Potassium Chloride (Klor-Con 10) 40 meq PO ONETIME ONE Stop: 05/10/17 10:46 Sodium Chloride (Saline Flush) 10 ml FLUSH ASDIRECTED PRN PRN Reason: Keep Vein Open Last Admin: 05/07/17 21:20 Dose: 10 ml Tamoxifen Citrate (Nolvadex) 20 mg PO DAILY [facility] Last Admin: 05/10/17 08:59 Dose: 20 mg Temazepam (Restoril) 15 mg PO BEDTIME PRN PRN Reason: Sleep Last Admin: 05/09/17 21:32 Dose: 15 mg Tramadol HCl (Ultram) 50 mg PO Q6H PRN PRN Reason: Pain Last Admin: 05/10/17 06:08 Dose: 50 mg Valsartan (Diovan) 160 mg PO DAILY [facility] Last Admin: 05/10/17 09:00 Dose: 160 mg Discontinued Medications Acetaminophen (Tylenol) 650 mg PO .Q4 PRN PRN Reason: pain, fever Cyclobenzaprine HCl (Flexeril) 10 mg PO .Q6 PRN PRN Reason: Muscle Spasm Last Admin: 05/07/17 13:13 Dose: 10 mg Heparin Sodium (Porcine) (Heparin Sodium) 5,000 units SUBCUT Q8H [facility] Heparin Sodium (Porcine) (Heparin Sodium) 5,000 units SUBCUT Q8H [facility] Last Admin: 05/08/17 17:12 Dose: 5,000 units Insulin Aspart (Novolog) 18 unit SUBCUT .QAC+HS [facility] Insulin Aspart (Novolog) 18 unit SUBCUT ACBED [facility] Last Admin: 05/07/17 23:48 Dose: Not Given Insulin Detemir (Levemir) 16 unit SUBCUT BEDTIME [facility] Last Admin: 05/07/17 22:12 Dose: 16 units Insulin Detemir (Levemir) 18 unit SUBCUT BEDTIME [facility] Morphine Sulfate (Morphine) 2 mg IVPUSH ONETIME ONE Stop: 05/07/17 10:37 Last Admin: 05/07/17 10:40 Dose: 2 mg Morphine Sulfate (Morphine) 2 mg IVPUSH ONETIME ONE Stop: 05/07/17 11:22 Last Admin: 05/07/17 11:26 Dose: 2 mg Tramadol HCl (Ultram) 50 mg PO .Q6H PRN PRN Reason: Pain Last Admin: 05/07/17 13:12 Dose: 50 mg - Exam General: Alert, Oriented Lungs: Clear to Auscultation, Normal Respiratory Effort Cardiovascular: Regular Rate, Regular Rhythm Extremities: No Pedal Edema - Problem List & Annotations (1) Contusion of forehead SNOMED Code(s): 209989061 Code(s): S00.83XA - CONTUSION OF OTHER PART OF HEAD, INITIAL ENCOUNTER Status: Acute Current Visit: Yes Qualifiers: Encounter type: initial encounter Qualified Code(s): S00.83XA - Contusion of other part of head, initial encounter (2) Left rib fracture SNOMED Code(s): 37208226 Code(s): S22.32XA - FRACTURE OF ONE RIB, LEFT SIDE, INIT FOR CLOS FX Status : Acute Current Visit: Yes Qualifiers: Encounter type: initial encounter Rib fracture type: single rib Fracture type: closed Qualified Code(s): S22.32XA - Fracture of one rib, left side, initial encounter for closed fracture (3) Pneumothorax on left SNOMED Code(s): 838626085 Code(s): J93.9 - PNEUMOTHORAX, UNSPECIFIED Status: Acute Current Visit: Yes (4) Back pain SNOMED Code(s): 650035083 Code(s): M54.9 - DORSALGIA, UNSPECIFIED Status: Acute Current Visit: No Qualifiers: Back pain location: low back pain Chronicity: acute Back pain laterality : unspecified Sciatica presence: without sciatica Qualified Code(s): M54.5 - Low back pain - Problem List Review Problem List Initiated/Reviewed/Updated: Yes - My Orders Last 24 Hours: My Active Orders 05/10/17 10:45 Potassium Chloride [Klor-Con 10] 40 meq PO ONETIME ONE - Plan Plan:: Fall Likely resulting in loss of consciousness, concussion. Trauma due to fall resulting in left second rib fracture with associated pneumothorax, subcutaneous air. No symptoms of intracranial bleeding developed. Repeat x-ray of the chest showed no pneumothorax. No shortness of breath. Right hand x-rays showed no fx left shoulder x-ray showed no fracture She certainly could have suffered a rotator cuff injury. If no improvement in MRI can be considered later. continue to treat with pain medication, physical and occupational therapy evaluation and treatment, heat therapy Currently the patient needed assistance with minimal activities like getting out of bed. Diabetes Continue Lantus and NovoLog regimen Follow blood sugars Hypertension Treat with Losartan and hydrochlorothiazide Dyslipidemia Continue Lipitor Osteoporosis with prior vertebral fracture Continue calcium and vitamin D History of breast cancer Continue tamoxifen DVT prophylaxis with subcutaneous heparin
[2017-05-10] MEDS: Amitriptyline 25 MG Tab PO SCH (20:44)
[2017-05-10] MEDS: atorvaSTATin 10 MG Tab PO SCH (20:45)
[2017-05-10] MEDS: Temazepam 15 MG Cap PO PRN (21:26)
[2017-05-10] MEDS: Insulin Detemir 100 Units/ML 3 ML Pen SUBCUT SCH (21:26)
[2017-05-11] MEDS: Heparin Sodium 5,000 Units/ML Vial SUBCUT SCH ×2 (05:22→13:17)
[2017-05-11] MEDS: Cyclobenzaprine 10 MG Tab PO PRN ×2 (05:23→11:21)
[2017-05-11] MEDS: traMADol 50 MG Tab PO PRN ×2 (05:23→11:21)
[2017-05-11] MEDS: Omeprazole 20 MG Cap.CR PO SCH (05:23)
[2017-05-11] MEDS: Aspirin 81 MG Tab.EC PO SCH (09:15)
[2017-05-11] MEDS: Calcium Carbonate/Vitamin D3 1250 MG-200 Unit Tab PO SCH (09:16)
[2017-05-11] MEDS: Multivitamins,Therapeutic Tab PO SCH (09:16)
[2017-05-11] MEDS: Ascorbic Acid 500 MG Tab PO SCH (09:16)
[2017-05-11] MEDS: Calcium Polycarbophil 625 MG Tab PO SCH (09:17)
[2017-05-11] MEDS: Hydrochlorothiazide 25 MG Tab PO SCH (09:17)
[2017-05-11] MEDS: Docusate Sodium 100 MG Cap PO PRN (09:17)
[2017-05-11] MEDS: Tamoxifen 10 MG Tab PO SCH (09:18)
[2017-05-11] MEDS: Insulin Aspart 100 Units/ML 3 ML Pen SUBCUT SCH ×4 (09:19→12:12)
[2017-05-11] MEDS: EYE EYELF SCH (09:23)
[2017-05-11 12:41] VITALS: BP 112/51
[2017-05-11] MEDS ORDERED: Lidocaine 5% 700 MG Patch TOP SCH (12:45)
[2017-05-11] MEDS ORDERED: Acetaminophen 325 MG Tab PO SCH (14:00)
[2017-05-11] MEDS ORDERED: Lactulose Soln 10 GM/15 ML 30 ML UD Cup PO ONE (14:18)
--- NOTE | 2017-05-11 14:26 | PCM.DCSUM1 ---
Discharge Summary - Hospital Course Free Text/Narrative:: Fall Likely resulting in loss of consciousness, concussion. Trauma due to fall resulting in left second rib fracture with associated pneumothorax, subcutaneous air. No symptoms of intracranial bleeding developed. Repeat x-ray of the chest showed no pneumothorax. No shortness of breath. Right hand x-rays showed no fx left shoulder x-ray showed no fracture She certainly could have suffered a rotator cuff injury. If no improvement in MRI can be considered later. continue to treat with pain medication, physical and occupational therapy evaluation and treatment, heat therapy started Lidoderm patch Diabetes uncontrolled Continue Lantus and NovoLog regimen Increase Lantus dose Follow blood sugars Hypertension Controlled Treat with Losartan and hydrochlorothiazide Dyslipidemia Continue Lipitor Osteoporosis with prior vertebral fracture Continue calcium and vitamin D History of breast cancer Continue tamoxifen DVT prophylaxis with subcutaneous heparin - Discharge Data Discharge Date: 05/11/17 Discharge Disposition: DC/Tfer W/I Hosp To Swing [facility] Condition: Good - Discharge Diagnosis/Problem(s) (1) Contusion of forehead SNOMED Code(s): 737816311 ICD Code: S00.83XA - CONTUSION OF OTHER PART OF HEAD, INITIAL ENCOUNTER Status: Acute Current Visit: Yes Qualifiers: Encounter type: initial encounter Qualified Code(s): S00.83XA - Contusion of other part of head, initial encounter (2) Left rib fracture SNOMED Code(s): 90646433 ICD Code: S22.32XA - FRACTURE OF ONE RIB, LEFT SIDE, INIT FOR CLOS FX Status: Acute Current Visit: Yes Qualifiers: Encounter type: initial encounter Rib fracture type: single rib Fracture type: closed Qualified Code(s): S22.32XA - Fracture of one rib, left side, initial encounter for closed fracture (3) Pneumothorax on left SNOMED Code(s): 935998760 ICD Code: J93.9 - PNEUMOTHORAX, UNSPECIFIED Status: Acute Current Visit: Yes (4) Back pain SNOMED Code(s): 766402357 ICD Code: M54.9 - DORSALGIA, UNSPECIFIED Status: Acute Current Visit: No Qualifiers: Back pain location: low back pain Chronicity: acute Back pain laterality : unspecified Sciatica presence: without sciatica Qualified Code(s): M54.5 - Low back pain - Patient Instructions Diet: Diabetic Diet Activity: As Tolerated - Discharge Plan Home Medications: Home Meds Amitriptyline [Elavil] 12.5 mg PO BEDTIME 05/07/17 [History] Ascorbic Acid [Vitamin C] 500 mg PO BID 05/07/17 [History] Aspirin [Adult Low Dose Aspirin EC] 81 mg PO DAILY 05/07/17 [History] Calcium Polycarbophil [Fibercon] 625 mg PO DAILY 05/07/17 [History] Cranberry Ext/C/L. Sporogenes [Azo Cranberry] 1 each PO BID 05/07/17 [History] Insulin Aspart [NovoLOG] 20 units SUBCUT TIDMEALS 05/07/17 [History] Insulin Glarg,Human.Rec.Analog [Lantus Solostar] 16 units SUBCUT BEDTIME [History] Multivitamin [Multi-Vitamin Daily] 1 each PO DAILY 05/07/17 [History] Omeprazole 20 mg PO DAILY 05/07/17 [History] Patient's Own Medication [Ptom] 1 drop EYELF DAILY 05/07/17 [History] Tamoxifen Citrate 20 mg PO DAILY 05/07/17 [History] Valsartan/Hydrochlorothiazide [Valsartan-Hctz 320-25 mg Tab] 0.5 each PO DAILY 05/07/17 [History] atorvaSTATin [Lipitor] 10 mg PO BEDTIME 05/07/17 [History] - Discharge Summary/Plan Comment DC Time >30 min.: No - General Info Date of Service: 05/11/17 Subjective Update: She is moving the left arm and shoulder are better. The neck is still stiff but improving. working with PT Continues to have moderate to severe left shoulder upper chest area pain. The pain is sharp or spasm-like. worse with movements. Non radiating. No associated shortness of breath. Has been using incentive spirometry multiple times - Review of Systems General: Denies: Fever Pulmonary: Denies: Shortness of Breath Cardiovascular: Reports: Chest Pain (Upper left side) Neurological: Denies: Confusion - Patient Data Vitals - Most Recent: Last Vital Signs Temp 36.6 C 05/11/17 11:00 Pulse 87 05/11/17 11:00 Resp 14 05/11/17 11:00 BP 112/51 L 05/11/17 11:00 Pulse Ox 97 05/11/17 12:00 Weight - Most Recent: 74.843 kg I&O - Last 24 hours: Intake & Output 05/10/17 05/11/17 05/11/17 22:59 06:59 14:59 Intake Total 1720 100 410 Balance 1720 100 410 Lab Results - Last 24 hrs: Laboratory Results - last 24 hr 05/10/17 05/10/17 05/11/17 Range/Units 16:57 21:18 08:14 POC Glucose 188 H 269 H 205 H (83-110) mg/dl 05/11/17 Range/Units 11:24 POC Glucose 263 H (83-110) mg/dl Med Orders - Current: Current Medications Acetaminophen (Tylenol) 650 mg PO TID [facility] Last Admin: 05/11/17 13:17 Dose: 650 mg Amitriptyline HCl (Elavil) 12.5 mg PO BEDTIME [facility] Last Admin: 05/10/17 20:44 Dose: 12.5 mg Ascorbic Acid (Vitamin C) 500 mg PO BID [facility] Last Admin: 05/11/17 09:16 Dose: 500 mg Aspirin (Halfprin) 81 mg PO DAILY [facility] Last Admin: 05/11/17 09:15 Dose: 81 mg Atorvastatin Calcium (Lipitor) 10 mg PO BEDTIME [facility] Last Admin: 05/10/17 20:45 Dose: 10 mg Calcium Carbonate (Calcium Carbonate/Vitamin D 1250 Mg-200 Unit) 1 tab PO BIDMEALS [facility] Last Admin: 05/11/17 09:16 Dose: 1 tab Calcium Polycarbophil (Fibercon) 625 mg PO DAILY [facility] Last Admin: 05/11/17 09:17 Dose: 625 mg Cyclobenzaprine HCl (Flexeril) 10 mg PO Q6H PRN PRN Reason: Muscle Spasm Last Admin: 05/11/17 11:21 Dose: 10 mg Docusate Sodium (Colace) 100 mg PO BID [facility] Heparin Sodium (Porcine) (Heparin Sodium) 5,000 units SUBCUT Q8HR [facility] Last Admin: 05/11/17 13:17 Dose: 5,000 units Hydrochlorothiazide (Hydrochlorothiazide) 12.5 mg PO DAILY [facility] Last Admin: 05/11/17 09:17 Dose: 12.5 mg Insulin Aspart (Novolog) 0 unit SUBCUT TIDAC [facility] PRN Reason: Protocol Last Admin: 05/11/17 12:11 Dose: 6 units Insulin Aspart (Novolog) 18 unit SUBCUT TIDAC [facility] Last Admin: 05/11/17 12:12 Dose: 18 units Insulin Detemir (Levemir) 20 unit SUBCUT BEDTIME [facility] Lactulose (Cephulac) 20 gm PO ONETIME ONE Stop: 05/11/17 14:19 Lidocaine (Lidoderm 5%) 700 mg TOP DAILY [facility] Last Admin: 05/11/17 13:15 Dose: 700 mg Multivitamins (Thera) 1 each PO DAILY [facility] Last Admin: 05/11/17 09:16 Dose: 1 each Omeprazole (Omeprazole) 20 mg PO ACBREAKFAST [facility] Last Admin: 05/11/17 05:23 Dose: 20 mg Ondansetron HCl (Zofran) 4 mg IVPUSH Q6H PRN PRN Reason: Nausea/Vomiting Last Admin: 05/07/17 15:35 Dose: 4 mg Eye DropPt's Own (Med) 0 each EYELF DAILY [facility] Last Admin: 05/11/17 09:23 Dose: 1 each Polyethylene Glycol (Miralax) 17 gm PO DAILY [facility] Sodium Chloride (Saline Flush) 10 ml FLUSH ASDIRECTED PRN PRN Reason: Keep Vein Open Last Admin: 05/07/17 21:20 Dose: 10 ml Tamoxifen Citrate (Nolvadex) 20 mg PO DAILY [facility] Last Admin: 05/11/17 09:18 Dose: 20 mg Temazepam (Restoril) 15 mg PO BEDTIME PRN PRN Reason: Sleep Last Admin: 05/10/17 21:26 Dose: 15 mg Tramadol HCl (Ultram) 50 mg PO Q6H PRN PRN Reason: Pain Last Admin: 05/11/17 11:21 Dose: 50 mg Valsartan (Diovan) 160 mg PO DAILY [facility] Last Admin: 05/11/17 09:15 Dose: 160 mg Discontinued Medications Acetaminophen (Tylenol) 650 mg PO .Q4 PRN PRN Reason: pain, fever Acetaminophen (Tylenol) 650 mg PO Q4H PRN PRN Reason: pain, fever Last Admin: 05/10/17 09:03 Dose: 650 mg Cyclobenzaprine HCl (Flexeril) 10 mg PO .Q6 PRN PRN Reason: Muscle Spasm Last Admin: 05/07/17 13:13 Dose: 10 mg Docusate Sodium (Colace) 100 mg PO BID PRN PRN Reason: Constipation Last Admin: 05/11/17 09:17 Dose: 100 mg Heparin Sodium (Porcine) (Heparin Sodium) 5,000 units SUBCUT Q8H [facility] Heparin Sodium (Porcine) (Heparin Sodium) 5,000 units SUBCUT Q8H [facility] Last Admin: 05/08/17 17:12 Dose: 5,000 units Insulin Aspart (Novolog) 18 unit SUBCUT .QAC+HS [facility] Insulin Aspart (Novolog) 18 unit SUBCUT ACBED [facility] Last Admin: 05/07/17 23:48 Dose: Not Given Insulin Detemir (Levemir) 16 unit SUBCUT BEDTIME [facility] Last Admin: 05/07/17 22:12 Dose: 16 units Insulin Detemir (Levemir) 18 unit SUBCUT BEDTIME [facility] Insulin Detemir (Levemir) 16 unit SUBCUT BEDTIME [facility] Last Admin: 05/10/17 21:26 Dose: 16 units Morphine Sulfate (Morphine) 2 mg IVPUSH ONETIME ONE Stop: 05/07/17 10:37 Last Admin: 05/07/17 10:40 Dose: 2 mg Morphine Sulfate (Morphine) 2 mg IVPUSH ONETIME ONE Stop: 05/07/17 11:22 Last Admin: 05/07/17 11:26 Dose: 2 mg Potassium Chloride (Klor-Con 10) 40 meq PO ONETIME ONE Stop: 05/10/17 10:46 Last Admin: 05/10/17 11:31 Dose: 40 meq Tramadol HCl (Ultram) 50 mg PO .Q6H PRN PRN Reason: Pain Last Admin: 05/07/17 13:12 Dose: 50 mg - Exam General: Reports: Alert, Oriented Neck: Reports: Supple Lungs: Reports: Clear to Auscultation, Normal Respiratory Effort Cardiovascular: Reports: Regular Rate, Regular Rhythm Extremities: No Pedal Edema *Q Meaningful Use (DIS) - VTE *Q VTE Criteria *Q: - Stroke *Q Stroke Criteria *Q: - AMI *Q AMI Criteria *Q:
[2017-05-11] MEDS ORDERED: Polyethylene Glycol 3350 Powder 17 GM Packet PO SCH (14:30)
[2017-05-11] MEDS ORDERED: Insulin Detemir 100 Units/ML 3 ML Pen SUBCUT SCH (21:00)
[2017-05-11] MEDS ORDERED: Docusate Sodium 100 MG Cap PO SCH (21:00)
== END 2017-05-11 14:58 | disposition swing bed (61) | DRG 200 ==
LOC: DL.ED 10:22 → DL.MS 12:05 → UNDOADMOB 12:05 → DL.MS 12:10 → OBSVTOIN 05-08 10:48 → DL.MS 05-09 18:00
PROVIDERS: ADMIT Internal Medicine; ATTEND Internal Medicine
DX: S27.0XXA Traumatic pneumothorax, initial encounter (principal); S06.9X1A Unspecified intracranial injury with loss of consciousness of 30 minutes or less, initial encounter; S22.32XA Fracture of one rib, left side, initial encounter for closed fracture; S06.0X1A Concussion with loss of consciousness of 30 minutes or less, initial encounter; S00.83XA Contusion of other part of head, initial encounter; M54.6 Pain in thoracic spine; E78.00 Pure hypercholesterolemia, unspecified; W10.9XXA Fall (on) (from) unspecified stairs and steps, initial encounter; E11.9 Type 2 diabetes mellitus without complications; E11.65 Type 2 diabetes mellitus with hyperglycemia; I10 Essential (primary) hypertension; E78.5 Hyperlipidemia, unspecified; M81.0 Age-related osteoporosis without current pathological fracture; Z85.3 Personal history of malignant neoplasm of breast; K21.9 Gastro-esophageal reflux disease without esophagitis; H54.7 Unspecified visual loss; Z88.1 Allergy status to other antibiotic agents; Z88.8 Allergy status to other drugs, medicaments and biological substances; Z79.82 Long term (current) use of aspirin; Z79.4 Long term (current) use of insulin; Z79.899 Other long term (current) drug therapy
CPT/HCPCS: 36415 ×2; 70450; 71046; 71250; 72125; 72128; 80048; 80053; 82550; 82553; 82962 ×4; 85025 ×2; 96374; 96375; 97162; 97165; 99285; A9270 ×18; J1815 ×2; J2270 ×2; J2405; J7050; 73030-LT; 73120-RT; 96376; 97116-GP; 97530-GO; G0378; J1644

== ENCOUNTER 2017-05-11 14:58 | Inpatient (IN) | payer MEDICARE, BC ==
[2017-05-11] MEDS ORDERED: Sodium Chloride 0.9% 10 ML Syringe FLUSH PRN (15:50)
[2017-05-11] MEDS ORDERED: Lactulose Soln 10 GM/15 ML 30 ML UD Cup PO ONE (15:50)
[2017-05-11] MEDS ORDERED: Ondansetron 4 MG/2 ML SDV IVPUSH PRN (15:50)
--- NOTE | 2017-05-11 15:57 | PCM.HP ---
H&P History of Present Illness - General Date of Service: 05/11/17 Admit Problem/Dx: Admission Diagnosis/Problem Admission Diagnosis/Problem Left shoulder pain Source of Information: Patient - History of Present Illness Initial Comments - Free Text/Narative: Transferred from acute care where she was admitted after a fall. She was found to have a left second rib fracture. The patient still need treatment for pain and physical and occupational therapy for activities of daily living. - Related Data Allergies/Adverse Reactions: Allergies Allergy/AdvReac Type Severity Reaction Status Date / Time amoxicillin trihydrate Allergy Rash Verified 05/07/17 12:19 [From Augmentin] metformin Allergy Diarrhea Verified 05/07/17 12:19 oxytetracycline Allergy Rash Verified 05/07/17 12:19 [From Terramycin] oxytetracycline HCl Allergy Rash Verified 05/07/17 12:19 [From Terramycin] potassium clavulanate Allergy Rash Verified 05/07/17 12:19 [From Augmentin] Home Medications: Home Meds Amitriptyline [Elavil] 12.5 mg PO BEDTIME 05/07/17 [History] Ascorbic Acid [Vitamin C] 500 mg PO BID 05/07/17 [History] Aspirin [Adult Low Dose Aspirin EC] 81 mg PO DAILY 05/07/17 [History] Calcium Polycarbophil [Fibercon] 625 mg PO DAILY 05/07/17 [History] Cranberry Ext/C/L. Sporogenes [Azo Cranberry] 1 each PO BID 05/07/17 [History] Insulin Aspart [NovoLOG] 20 units SUBCUT TIDMEALS 05/07/17 [History] Insulin Glarg,Human.Rec.Analog [Lantus Solostar] 16 units SUBCUT BEDTIME [History] Multivitamin [Multi-Vitamin Daily] 1 each PO DAILY 05/07/17 [History] Omeprazole 20 mg PO DAILY 05/07/17 [History] Patient's Own Medication [Ptom] 1 drop EYELF DAILY 05/07/17 [History] Tamoxifen Citrate 20 mg PO DAILY 05/07/17 [History] Valsartan/Hydrochlorothiazide [Valsartan-Hctz 320-25 mg Tab] 0.5 each PO DAILY 05/07/17 [History] atorvaSTATin [Lipitor] 10 mg PO BEDTIME 05/07/17 [History] Past Medical History HEENT History: Reports: Impaired Vision Cardiovascular History: Reports: High Cholesterol, Hypertension Respiratory History: Reports: None Gastrointestinal History: Reports: GERD Genitourinary History: Reports: Renal Calculus, UTI, Recurrent CREPE MA[employer]ER History: Reports: Musculoskeletal History: Reports: Other (See Below) Other Musculoskeletal History: bursitis to B/L knee Neurological History: Reports: Neuropathy, Diabetic, Vertigo Psychiatric History: Reports: None Endocrine/Metabolic History: Reports: Diabetes, Type II Hematologic History: Reports: None Immunologic History: Reports: None Oncologic (Cancer) History: Reports: Breast Dermatologic History: Reports: None - Infectious Disease History Infectious Disease History: Reports: Shingles - Past Surgical History GI Surgical History: Reports: Appendectomy, Cholecystectomy Female Surgical History: Reports: Hysterectomy Oncologic Surgical History: Reports: Mastectomy Social & Family History - Family History Family Medical History: Noncontributory Neurological: Reports: CVA - Tobacco Use Smoking Status *Q: Never Smoker Second Hand Smoke Exposure: No - Caffeine Use Caffeine Use: Reports: Coffee - Recreational Drug Use Recreational Drug Use: No H&P Review of Systems - Review of Systems: Review Of Systems: See Below General: Denies: Fever Pulmonary: Denies: Shortness of Breath Cardiovascular: Denies: Chest Pain Gastrointestinal: Denies: Nausea Genitourinary: Denies: Dysuria Exam - Exam Exam: See Below - Exam General: Alert Neck: Supple Lungs: Clear to Auscultation, Normal Respiratory Effort Cardiovascular: Regular Rate, Regular Rhythm Neuro Extensive - Mental Status: Alert, Oriented x3 Psychiatric: Alert, Normal Affect, Normal Mood *Q Meaningful Use (ADM) - VTE *Q VTE Criteria *Q: - Stroke *Q Stroke Criteria *Q: - AMI *Q AMI Criteria *Q: - Problem List (1) Left rib fracture SNOMED Code(s): 17497869 ICD Code: S22.32XA - FRACTURE OF ONE RIB, LEFT SIDE, INIT FOR CLOS FX Status: Acute Current Visit: No Problem List Initiated/Reviewed/Updated: Yes Orders Last 24hrs: Active Orders 24 hr Category Date Time Status Admission Status [Patient Status] [ADT] Routine ADT 05/11/17 15:53 Active Antiembolic Devices [RC] PER UNIT ROUTINE Care 05/11/17 15:50 Active Antiembolic Devices [RC] PER UNIT ROUTINE Care 05/11/17 15:50 Active Cooling Warming Measures [RC] ASDIRECTED Care 05/11/17 15:50 Active Glucose [Blood Glucose Check, Bedside] [RC] QIDACANDBED Care 05/11/17 15:50 Active Oxygen Therapy [RC] PRN Care 05/11/17 15:50 Active RT Incentive Spirometry [RC] ASDIRECTED Care 05/11/17 15:50 Active Up With Assistance [RC] ASDIRECTED Care 05/11/17 15:50 Active Vital Signs [RC] QSHIFT Care 05/11/17 15:50 Active OT Evaluation and Treatment [CONS] Routine Cons 05/11/17 15:50 Active PT Evaluation and Treatment [CONS] Routine Cons 05/11/17 15:50 Active Consistent Carbohydrate Diet [DIET] Diet 05/11/17 Dinner Active Acetaminophen [Tylenol] Med 05/11/17 21:00 Ordered 650 mg PO TID Amitriptyline [Elavil] Med 05/11/17 21:00 Ordered 12.5 mg PO BEDTIME Ascorbic Acid [Vitamin C] Med 05/11/17 21:00 Ordered 500 mg PO BID Aspirin [Halfprin] Med 05/12/17 09:00 Ordered 81 mg PO DAILY Calcium Carbonate/Vitamin D3 [Calcium Carbonate/Vitamin Med 05/11/17 18:00 Ordered D 1250 MG-200 Unit] 1 tab PO BIDMEALS Calcium Polycarbophil [Fibercon] Med 05/12/17 09:00 Ordered 625 mg PO DAILY Cyclobenzaprine [Flexeril] Med 05/11/17 15:50 Ordered 10 mg PO Q6H PRN Docusate Sodium [Colace] Med 05/11/17 21:00 Ordered 100 mg PO BID Heparin Sodium Med 05/11/17 22:00 Ordered 5,000 units SUBCUT Q8HR Hydrochlorothiazide Med 05/12/17 09:00 Ordered 12.5 mg PO DAILY Insulin Aspart [NovoLOG] Med 05/11/17 17:00 Ordered 18 unit SUBCUT TIDAC Insulin Aspart [NovoLOG] Med 05/11/17 17:00 Ordered See Protocol SUBCUT TIDAC Insulin Detemir [Levemir] Med 05/11/17 21:00 Ordered 20 unit SUBCUT BEDTIME Lactulose [Cephulac] Med 05/11/17 15:50 Once 20 gm PO ONETIME ONE Lidocaine 5% [Lidoderm 5%] Med 05/12/17 09:00 Ordered 700 mg TOP DAILY Multivitamins,Therapeutic [Thera] Med 05/12/17 09:00 Ordered 1 each PO DAILY Omeprazole Med 05/12/17 06:00 Ordered 20 mg PO ACBREAKFAST Ondansetron [Zofran] Med 05/11/17 15:50 Ordered 4 mg IVPUSH Q6H PRN Patient's Own Medication [Ptom] Med 05/12/17 09:00 Ordered 0 each EYELF DAILY Polyethylene Glycol 3350 [MiraLAX] Med 05/12/17 09:00 Ordered 17 gm PO DAILY Sodium Chloride 0.9% [Saline Flush] Med 05/11/17 15:50 Ordered 10 ml FLUSH ASDIRECTED PRN Tamoxifen [Nolvadex] Med 05/12/17 09:00 Ordered 20 mg PO DAILY Temazepam [Restoril] Med 05/11/17 15:50 Ordered 15 mg PO BEDTIME PRN Valsartan [Diovan] Med 05/12/17 09:00 Ordered 160 mg PO DAILY atorvaSTATin [Lipitor] Med 05/11/17 21:00 Ordered 10 mg PO BEDTIME traMADol [Ultram] Med 05/11/17 15:50 Ordered 50 mg PO Q6H PRN K Pad [Heat Therapy] [OM.PC] Routine Oth 05/11/17 15:50 Ordered Sequential Compression Device [OM.PC] Per Unit Routine Oth 05/11/17 15:50 Ordered [place] Hose [Antiembolic Hose] [OM.PC] Routine Oth 05/11/17 15:50 Ordered Medication Orders Acetaminophen (Tylenol) 650 mg PO TID GO Amitriptyline HCl (Elavil) 12.5 mg PO BEDTIME GO Ascorbic Acid (Vitamin C) 500 mg PO BID GO Aspirin (Halfprin) 81 mg PO DAILY GO Atorvastatin Calcium (Lipitor) 10 mg PO BEDTIME GO Calcium Carbonate (Calcium Carbonate/Vitamin D 1250 Mg-200 Unit) 1 tab PO BIDMEALS GO Calcium Polycarbophil (Fibercon) 625 mg PO DAILY GO Cyclobenzaprine HCl (Flexeril) 10 mg PO Q6H PRN PRN Reason: Muscle Spasm Docusate Sodium (Colace) 100 mg PO BID GO Heparin Sodium (Porcine) (Heparin Sodium) 5,000 units SUBCUT Q8HR GO Hydrochlorothiazide (Hydrochlorothiazide) 12.5 mg PO DAILY GO Insulin Aspart (Novolog) 0 unit SUBCUT TIDAC GO PRN Reason: Protocol Insulin Aspart (Novolog) 18 unit SUBCUT TIDAC GO Insulin Detemir (Levemir) 20 unit SUBCUT BEDTIME GO Lactulose (Cephulac) 20 gm PO ONETIME ONE Stop: 05/11/17 15:51 Lidocaine (Lidoderm 5%) 700 mg TOP DAILY [facility] Multivitamins (Thera) 1 each PO DAILY GO Omeprazole (Omeprazole) 20 mg PO ACBREAKFAST GO Ondansetron HCl (Zofran) 4 mg IVPUSH Q6H PRN PRN Reason: Nausea/Vomiting Patient Own Medication (Ptom) 0 each EYELF DAILY [facility] Polyethylene Glycol (Miralax) 17 gm PO DAILY [facility] Sodium Chloride (Saline Flush) 10 ml FLUSH ASDIRECTED PRN PRN Reason: Keep Vein Open Tamoxifen Citrate (Nolvadex) 20 mg PO DAILY GO Temazepam (Restoril) 15 mg PO BEDTIME PRN PRN Reason: Sleep Tramadol HCl (Ultram) 50 mg PO Q6H PRN PRN Reason: Pain Valsartan (Diovan) 160 mg PO DAILY [facility] Assessment/Plan Comment:: Fall Likely resulting in loss of consciousness, concussion. Trauma due to fall resulting in left second rib fracture with associated pneumothorax, subcutaneous air. No symptoms of intracranial bleeding developed. Repeat x-ray of the chest showed no pneumothorax. No c/o shortness of breath. Right hand x-rays showed no fx left shoulder x-ray showed no fracture She certainly could have suffered a rotator cuff injury. If no improvement in MRI can be considered later. continue to treat with pain medication, physical and occupational therapy evaluation and treatment, heat therapy started Lidoderm patch Diabetes uncontrolled Continue Lantus and NovoLog regimen Increase Lantus dose Follow blood sugars Hypertension Controlled Treat with Losartan and hydrochlorothiazide Dyslipidemia Continue Lipitor Osteoporosis with prior vertebral fracture Continue calcium and vitamin D History of breast cancer Continue tamoxifen DVT prophylaxis with subcutaneous heparin
[2017-05-11] MEDS: Insulin Aspart 100 Units/ML 3 ML Pen SUBCUT SCH ×2 (17:31→17:32)
[2017-05-11] MEDS: Calcium Carbonate/Vitamin D3 1250 MG-200 Unit Tab PO SCH (17:31)
[2017-05-11] MEDS: Ascorbic Acid 500 MG Tab PO SCH (21:56)
[2017-05-11] MEDS: Amitriptyline 25 MG Tab PO SCH (21:57)
[2017-05-11] MEDS: Acetaminophen 325 MG Tab PO SCH (21:57)
[2017-05-11] MEDS: atorvaSTATin 10 MG Tab PO SCH (21:57)
[2017-05-11] MEDS: Docusate Sodium 100 MG Cap PO SCH (21:57)
[2017-05-11] MEDS: Insulin Detemir 100 Units/ML 3 ML Pen SUBCUT SCH (21:58)
[2017-05-11] MEDS: Heparin Sodium 5,000 Units/ML Vial SUBCUT SCH (22:01)
[2017-05-12] MEDS: Temazepam 15 MG Cap PO PRN ×2 (02:18→21:13)
[2017-05-12] MEDS: Omeprazole 20 MG Cap.CR PO SCH (06:03)
[2017-05-12] MEDS: Heparin Sodium 5,000 Units/ML Vial SUBCUT SCH ×3 (06:03→21:13)
[2017-05-12] MEDS: Acetaminophen 325 MG Tab PO SCH ×3 (08:43→21:14)
[2017-05-12] MEDS: Polyethylene Glycol 3350 Powder 17 GM Packet PO SCH (08:43)
[2017-05-12] MEDS: Docusate Sodium 100 MG Cap PO SCH ×2 (08:44→21:13)
[2017-05-12] MEDS: Aspirin 81 MG Tab.EC PO SCH (08:44)
[2017-05-12] MEDS: Multivitamins,Therapeutic Tab PO SCH (08:44)
[2017-05-12] MEDS: Calcium Polycarbophil 625 MG Tab PO SCH (08:44)
[2017-05-12] MEDS: Hydrochlorothiazide 25 MG Tab PO SCH (08:44)
[2017-05-12] MEDS: Ascorbic Acid 500 MG Tab PO SCH ×2 (08:44→21:13)
[2017-05-12] MEDS: Tamoxifen 10 MG Tab PO SCH (08:44)
[2017-05-12] MEDS: Calcium Carbonate/Vitamin D3 1250 MG-200 Unit Tab PO SCH ×2 (08:44→17:26)
[2017-05-12] MEDS: Lidocaine 5% 700 MG Patch TOP SCH (08:45)
[2017-05-12] MEDS: Insulin Aspart 100 Units/ML 3 ML Pen SUBCUT SCH ×6 (08:45→17:26)
[2017-05-12] MEDS: EYE EYELF SCH (08:47)
[2017-05-12] MEDS: Insulin Detemir 100 Units/ML 3 ML Pen SUBCUT SCH (21:12)
[2017-05-12] MEDS: atorvaSTATin 10 MG Tab PO SCH (21:13)
[2017-05-12] MEDS: Amitriptyline 25 MG Tab PO SCH (21:13)
[2017-05-13] MEDS: traMADol 50 MG Tab PO PRN ×2 (02:40→21:43)
[2017-05-13] MEDS: Cyclobenzaprine 10 MG Tab PO PRN ×2 (02:40→21:44)
[2017-05-13] MEDS: Omeprazole 20 MG Cap.CR PO SCH (05:53)
[2017-05-13] MEDS: Heparin Sodium 5,000 Units/ML Vial SUBCUT SCH ×3 (05:53→21:43)
[2017-05-13] MEDS: Insulin Aspart 100 Units/ML 3 ML Pen SUBCUT SCH ×6 (08:08→17:33)
[2017-05-13] MEDS: Hydrochlorothiazide 25 MG Tab PO SCH (08:21)
[2017-05-13] MEDS: Polyethylene Glycol 3350 Powder 17 GM Packet PO SCH (08:21)
[2017-05-13] MEDS: Ascorbic Acid 500 MG Tab PO SCH ×2 (08:21→21:43)
[2017-05-13] MEDS: Calcium Carbonate/Vitamin D3 1250 MG-200 Unit Tab PO SCH ×2 (08:21→17:33)
[2017-05-13] MEDS: Calcium Polycarbophil 625 MG Tab PO SCH (08:21)
[2017-05-13] MEDS: Tamoxifen 10 MG Tab PO SCH (08:21)
[2017-05-13] MEDS: Multivitamins,Therapeutic Tab PO SCH (08:21)
[2017-05-13] MEDS: Docusate Sodium 100 MG Cap PO SCH ×2 (08:21→21:44)
[2017-05-13] MEDS: Acetaminophen 325 MG Tab PO SCH ×3 (08:22→21:44)
[2017-05-13] MEDS: Aspirin 81 MG Tab.EC PO SCH (08:22)
[2017-05-13] MEDS: Lidocaine 5% 700 MG Patch TOP SCH (08:22)
[2017-05-13] MEDS: EYE EYELF SCH (08:24)
[2017-05-13] MEDS: Amitriptyline 25 MG Tab PO SCH (21:43)
[2017-05-13] MEDS: atorvaSTATin 10 MG Tab PO SCH (21:43)
[2017-05-13] MEDS: Insulin Detemir 100 Units/ML 3 ML Pen SUBCUT SCH (21:43)
[2017-05-13] MEDS: Temazepam 15 MG Cap PO PRN (21:43)
[2017-05-14] MEDS: Heparin Sodium 5,000 Units/ML Vial SUBCUT SCH ×3 (05:49→22:07)
[2017-05-14] MEDS: Omeprazole 20 MG Cap.CR PO SCH (05:49)
[2017-05-14] MEDS: Insulin Aspart 100 Units/ML 3 ML Pen SUBCUT SCH ×6 (08:29→17:37)
[2017-05-14] MEDS: Polyethylene Glycol 3350 Powder 17 GM Packet PO SCH (09:06)
[2017-05-14] MEDS: Lidocaine 5% 700 MG Patch TOP SCH (09:06)
[2017-05-14] MEDS: Docusate Sodium 100 MG Cap PO SCH ×2 (09:08→21:41)
[2017-05-14] MEDS: Calcium Polycarbophil 625 MG Tab PO SCH (09:08)
[2017-05-14] MEDS: Multivitamins,Therapeutic Tab PO SCH (09:08)
[2017-05-14] MEDS: Ascorbic Acid 500 MG Tab PO SCH ×2 (09:08→21:39)
[2017-05-14] MEDS: Acetaminophen 325 MG Tab PO SCH ×3 (09:09→21:40)
[2017-05-14] MEDS: Aspirin 81 MG Tab.EC PO SCH (09:09)
[2017-05-14] MEDS: Hydrochlorothiazide 25 MG Tab PO SCH (09:11)
[2017-05-14] MEDS: Tamoxifen 10 MG Tab PO SCH (09:11)
[2017-05-14] MEDS: Calcium Carbonate/Vitamin D3 1250 MG-200 Unit Tab PO SCH ×2 (09:13→17:43)
[2017-05-14] MEDS: EYE EYELF SCH ×2 (09:17→09:26)
--- NOTE | 2017-05-14 16:58 | PCM.PN ---
- General Info Date of Service: 05/14/17 Subjective Update: feeling better, pain is better controlled in the left shoulder. She has been off and ambulating with a walker. Blood sugars are slightly elevated. - Review of Systems General: Denies: Fever Pulmonary: Denies: Shortness of Breath Cardiovascular: Denies: Chest Pain Neurological: Denies: Confusion - Patient Data Vitals - Most Recent: Last Vital Signs Temp 36.3 C 05/14/17 15:55 Pulse 81 05/14/17 15:55 Resp 20 05/14/17 15:55 BP 118/60 05/14/17 15:55 Pulse Ox 99 05/14/17 15:55 Weight - Most Recent: 74.298 kg I&O - Last 24 Hours: Intake & Output 05/14/17 05/14/17 05/14/17 06:59 14:59 22:59 Intake Total 400 450 Balance 400 450 Lab Results Last 24 Hours: Laboratory Results - last 24 hr 05/13/17 05/13/17 05/14/17 Range/Units 16:57 20:55 08:05 POC Glucose 127 H 132 H 145 H (83-110) mg/dl 05/14/17 Range/Units 11:20 POC Glucose 226 H (83-110) mg/dl Med Orders - Current: Current Medications Acetaminophen (Tylenol) 650 mg PO TID [facility] Last Admin: 05/14/17 15:11 Dose: 650 mg Amitriptyline HCl (Elavil) 12.5 mg PO BEDTIME [facility] Last Admin: 05/13/17 21:43 Dose: 12.5 mg Ascorbic Acid (Vitamin C) 500 mg PO BID [facility] Last Admin: 05/14/17 09:08 Dose: 500 mg Aspirin (Halfprin) 81 mg PO DAILY [facility] Last Admin: 05/14/17 09:09 Dose: 81 mg Atorvastatin Calcium (Lipitor) 10 mg PO BEDTIME [facility] Last Admin: 05/13/17 21:43 Dose: 10 mg Calcium Carbonate (Calcium Carbonate/Vitamin D 1250 Mg-200 Unit) 1 tab PO BIDMEALS [facility] Last Admin: 05/14/17 09:13 Dose: 1 tab Calcium Polycarbophil (Fibercon) 625 mg PO DAILY [facility] Last Admin: 05/14/17 09:08 Dose: 625 mg Cyclobenzaprine HCl (Flexeril) 10 mg PO Q6H PRN PRN Reason: Muscle Spasm Last Admin: 05/13/17 21:44 Dose: 10 mg Docusate Sodium (Colace) 100 mg PO BID [facility] Last Admin: 05/14/17 09:08 Dose: 100 mg Heparin Sodium (Porcine) (Heparin Sodium) 5,000 units SUBCUT Q8HR [facility] Last Admin: 05/14/17 15:12 Dose: 5,000 units Hydrochlorothiazide (Hydrochlorothiazide) 12.5 mg PO DAILY [facility] Last Admin: 05/14/17 09:11 Dose: 12.5 mg Insulin Aspart (Novolog) 18 unit SUBCUT TIDAC [facility] Last Admin: 05/14/17 12:45 Dose: 18 units Insulin Aspart (Novolog) 0 unit SUBCUT TIDAC [facility] PRN Reason: Protocol Last Admin: 05/14/17 12:46 Dose: 4 units Lidocaine (Lidoderm 5%) 700 mg TOP DAILY [facility] Last Admin: 05/14/17 09:06 Dose: 700 mg Miscellaneous Information (Remove Patch) 1 ea TRDERM BEDTIME [facility] Last Admin: 05/13/17 21:44 Dose: 1 ea Multivitamins (Thera) 1 each PO DAILY [facility] Last Admin: 05/14/17 09:08 Dose: 1 each Omeprazole (Omeprazole) 20 mg PO ACBREAKFAST [facility] Last Admin: 05/14/17 05:49 Dose: 20 mg Ondansetron HCl (Zofran) 4 mg IVPUSH Q6H PRN PRN Reason: Nausea/Vomiting Eye Drop Pt's Own (Med) 0 each EYELF DAILY [facility] Last Admin: 05/14/17 09:26 Dose: Not Given Polyethylene Glycol (Miralax) 17 gm PO DAILY [facility] Last Admin: 05/14/17 09:06 Dose: 17 gm Sodium Chloride (Saline Flush) 10 ml FLUSH ASDIRECTED PRN PRN Reason: Keep Vein Open Tamoxifen Citrate (Nolvadex) 20 mg PO DAILY [facility] Last Admin: 05/14/17 09:11 Dose: 20 mg Temazepam (Restoril) 15 mg PO BEDTIME PRN PRN Reason: Sleep Last Admin: 05/13/17 21:43 Dose: 15 mg Tramadol HCl (Ultram) 50 mg PO Q6H PRN PRN Reason: Pain Last Admin: 05/13/17 21:43 Dose: 50 mg Valsartan (Diovan) 160 mg PO DAILY [facility] Last Admin: 05/14/17 09:07 Dose: 160 mg Discontinued Medications Insulin Aspart (Novolog) 0 unit SUBCUT TIDAC [facility] PRN Reason: Protocol Last Admin: 05/12/17 08:45 Dose: 2 units Insulin Detemir (Levemir) 20 unit SUBCUT BEDTIME [facility] Last Admin: 05/13/17 21:43 Dose: 20 units Lactulose (Cephulac) 20 gm PO ONETIME ONE Stop: 05/11/17 15:51 Last Admin: 05/11/17 16:51 Dose: 20 gm - Exam General: Alert, Oriented Neck: Supple Lungs: Clear to Auscultation, Normal Respiratory Effort Cardiovascular: Regular Rate, Regular Rhythm Extremities: No Pedal Edema, Other (Left shoulder reproducible tenderness with pressure and movements) Skin: Warm, Dry - Problem List & Annotations (1) Left rib fracture SNOMED Code(s): 66072628 Code(s): S22.32XA - FRACTURE OF ONE RIB, LEFT SIDE, INIT FOR CLOS FX Status : Acute Current Visit: No - Problem List Review Problem List Initiated/Reviewed/Updated: Yes - My Orders Last 24 Hours: My Active Orders 05/14/17 16:55 Insulin Detemir [Levemir] 25 unit SUBCUT BEDTIME - Plan Plan:: Fall Likely resulting in loss of consciousness, concussion. Trauma due to fall resulting in left second rib fracture with associated pneumothorax, subcutaneous air. No symptoms of intracranial bleeding developed. Repeat x-ray of the chest showed no pneumothorax. No c/o shortness of breath. Right hand x-rays showed no fx left shoulder x-ray showed no fracture She certainly could have suffered a rotator cuff injury. If no improvement in MRI can be considered later. continue to treat with pain medication, physical and occupational therapy evaluation and treatment, heat therapy started Lidoderm patch pain appears better controlled Diabetes uncontrolled Continue Lantus and NovoLog regimen further Increase Lantus dose Follow blood sugars Hypertension Controlled Treat with Losartan and hydrochlorothiazide Dyslipidemia Continue Lipitor Osteoporosis with prior vertebral fracture Continue calcium and vitamin D History of breast cancer Continue tamoxifen DVT prophylaxis with subcutaneous heparin discussed discharge planning with the patient, 2 sons. she would like to return home. Family feels it would be safer to go to an assisted living facility. We'll have discharge meeting on Sunday
[2017-05-14] MEDS: Amitriptyline 25 MG Tab PO SCH (21:42)
[2017-05-14] MEDS: Temazepam 15 MG Cap PO PRN (21:44)
[2017-05-14] MEDS: Cyclobenzaprine 10 MG Tab PO PRN (21:44)
[2017-05-14] MEDS: traMADol 50 MG Tab PO PRN (21:44)
[2017-05-14] MEDS: atorvaSTATin 10 MG Tab PO SCH (21:44)
[2017-05-14] MEDS: Insulin Detemir 100 Units/ML 3 ML Pen SUBCUT SCH (21:49)
[2017-05-15] MEDS: Omeprazole 20 MG Cap.CR PO SCH (06:45)
[2017-05-15] MEDS: Heparin Sodium 5,000 Units/ML Vial SUBCUT SCH ×3 (06:47→21:53)
[2017-05-15] MEDS: Insulin Aspart 100 Units/ML 3 ML Pen SUBCUT SCH ×6 (08:08→17:36)
[2017-05-15] MEDS: Calcium Carbonate/Vitamin D3 1250 MG-200 Unit Tab PO SCH ×2 (08:19→17:35)
[2017-05-15] MEDS: Hydrochlorothiazide 25 MG Tab PO SCH (08:26)
[2017-05-15] MEDS: Aspirin 81 MG Tab.EC PO SCH (08:27)
[2017-05-15] MEDS: Calcium Polycarbophil 625 MG Tab PO SCH (08:27)
[2017-05-15] MEDS: Ascorbic Acid 500 MG Tab PO SCH ×2 (08:27→21:40)
[2017-05-15] MEDS: Acetaminophen 325 MG Tab PO SCH ×3 (08:28→21:44)
[2017-05-15] MEDS: Tamoxifen 10 MG Tab PO SCH (08:28)
[2017-05-15] MEDS: Multivitamins,Therapeutic Tab PO SCH (08:28)
[2017-05-15] MEDS: Docusate Sodium 100 MG Cap PO SCH ×2 (08:28→21:40)
[2017-05-15] MEDS: Lidocaine 5% 700 MG Patch TOP SCH (08:31)
[2017-05-15] MEDS: Polyethylene Glycol 3350 Powder 17 GM Packet PO SCH (08:31)
[2017-05-15] MEDS: EYE EYELF SCH (08:32)
[2017-05-15] MEDS: atorvaSTATin 10 MG Tab PO SCH (21:40)
[2017-05-15] MEDS: Amitriptyline 25 MG Tab PO SCH (21:43)
[2017-05-15] MEDS: traMADol 50 MG Tab PO PRN (21:46)
[2017-05-15] MEDS: Temazepam 15 MG Cap PO PRN (21:47)
[2017-05-15] MEDS: Cyclobenzaprine 10 MG Tab PO PRN (21:47)
[2017-05-15] MEDS: Insulin Detemir 100 Units/ML 3 ML Pen SUBCUT SCH (21:49)
[2017-05-16] MEDS: Omeprazole 20 MG Cap.CR PO SCH (06:20)
[2017-05-16] MEDS: Heparin Sodium 5,000 Units/ML Vial SUBCUT SCH ×3 (06:23→21:30)
[2017-05-16] MEDS: Insulin Aspart 100 Units/ML 3 ML Pen SUBCUT SCH ×6 (09:01→17:17)
[2017-05-16] MEDS: Polyethylene Glycol 3350 Powder 17 GM Packet PO SCH (09:02)
[2017-05-16] MEDS: Lidocaine 5% 700 MG Patch TOP SCH (09:02)
[2017-05-16] MEDS: Ascorbic Acid 500 MG Tab PO SCH ×2 (09:03→21:22)
[2017-05-16] MEDS: Tamoxifen 10 MG Tab PO SCH (09:03)
[2017-05-16] MEDS: Calcium Polycarbophil 625 MG Tab PO SCH (09:03)
[2017-05-16] MEDS: Calcium Carbonate/Vitamin D3 1250 MG-200 Unit Tab PO SCH ×2 (09:03→17:16)
[2017-05-16] MEDS: Multivitamins,Therapeutic Tab PO SCH (09:03)
[2017-05-16] MEDS: Docusate Sodium 100 MG Cap PO SCH ×2 (09:03→21:22)
[2017-05-16] MEDS: Acetaminophen 325 MG Tab PO SCH ×3 (09:04→21:24)
[2017-05-16] MEDS: Aspirin 81 MG Tab.EC PO SCH (09:04)
[2017-05-16] MEDS: Hydrochlorothiazide 25 MG Tab PO SCH (09:04)
[2017-05-16] MEDS: atorvaSTATin 10 MG Tab PO SCH (21:22)
[2017-05-16] MEDS: Amitriptyline 25 MG Tab PO SCH (21:23)
[2017-05-16] MEDS: Temazepam 15 MG Cap PO PRN (21:26)
[2017-05-16] MEDS: Insulin Detemir 100 Units/ML 3 ML Pen SUBCUT SCH (21:35)
[2017-05-17] MEDS: Heparin Sodium 5,000 Units/ML Vial SUBCUT SCH ×3 (06:18→21:51)
[2017-05-17] MEDS: Omeprazole 20 MG Cap.CR PO SCH (06:20)
[2017-05-17] MEDS: Calcium Polycarbophil 625 MG Tab PO SCH (08:54)
[2017-05-17] MEDS: Hydrochlorothiazide 25 MG Tab PO SCH (08:55)
[2017-05-17] MEDS: Multivitamins,Therapeutic Tab PO SCH (08:55)
[2017-05-17] MEDS: Ascorbic Acid 500 MG Tab PO SCH ×2 (08:58→20:48)
[2017-05-17] MEDS: Docusate Sodium 100 MG Cap PO SCH ×2 (08:58→20:45)
[2017-05-17] MEDS: Calcium Carbonate/Vitamin D3 1250 MG-200 Unit Tab PO SCH ×2 (09:01→17:38)
[2017-05-17] MEDS: Acetaminophen 325 MG Tab PO SCH ×3 (09:02→20:47)
[2017-05-17] MEDS: Aspirin 81 MG Tab.EC PO SCH (09:06)
[2017-05-17] MEDS: Polyethylene Glycol 3350 Powder 17 GM Packet PO SCH (09:06)
[2017-05-17] MEDS: Lidocaine 5% 700 MG Patch TOP SCH (09:07)
[2017-05-17] MEDS: Insulin Aspart 100 Units/ML 3 ML Pen SUBCUT SCH ×6 (09:08→17:38)
[2017-05-17] MEDS: Tamoxifen 10 MG Tab PO SCH (09:15)
[2017-05-17] MEDS: Amitriptyline 25 MG Tab PO SCH (20:45)
[2017-05-17] MEDS: atorvaSTATin 10 MG Tab PO SCH (20:48)
[2017-05-17] MEDS: Insulin Detemir 100 Units/ML 3 ML Pen SUBCUT SCH (21:50)
[2017-05-18] MEDS: traMADol 50 MG Tab PO PRN ×2 (02:54→21:10)
[2017-05-18] MEDS: Omeprazole 20 MG Cap.CR PO SCH (05:46)
[2017-05-18] MEDS: Heparin Sodium 5,000 Units/ML Vial SUBCUT SCH ×3 (05:46→21:11)
[2017-05-18] MEDS: Hydrochlorothiazide 25 MG Tab PO SCH (08:37)
[2017-05-18] MEDS: Calcium Carbonate/Vitamin D3 1250 MG-200 Unit Tab PO SCH ×2 (08:37→18:00)
[2017-05-18] MEDS: Calcium Polycarbophil 625 MG Tab PO SCH (08:38)
[2017-05-18] MEDS: Insulin Aspart 100 Units/ML 3 ML Pen SUBCUT SCH ×6 (08:38→17:43)
[2017-05-18] MEDS: Ascorbic Acid 500 MG Tab PO SCH ×2 (08:40→21:10)
[2017-05-18] MEDS: Aspirin 81 MG Tab.EC PO SCH (08:40)
[2017-05-18] MEDS: Multivitamins,Therapeutic Tab PO SCH (08:41)
[2017-05-18] MEDS: Docusate Sodium 100 MG Cap PO SCH ×2 (08:41→20:15)
[2017-05-18] MEDS: Tamoxifen 10 MG Tab PO SCH (08:41)
[2017-05-18] MEDS: Acetaminophen 325 MG Tab PO SCH ×3 (08:42→21:10)
[2017-05-18] MEDS: Lidocaine 5% 700 MG Patch TOP SCH (08:44)
[2017-05-18] MEDS: Polyethylene Glycol 3350 Powder 17 GM Packet PO SCH (08:44)
[2017-05-18] MEDS ORDERED: Meclizine 12.5 MG Tab PO PRN (09:39)
[2017-05-18] MEDS ORDERED: Insulin Aspart 100 Units/ML 3 ML Pen SUBCUT ONE (17:44)
[2017-05-18] MEDS: Amitriptyline 25 MG Tab PO SCH (21:09)
[2017-05-18] MEDS: atorvaSTATin 10 MG Tab PO SCH (21:10)
[2017-05-18] MEDS: Insulin Detemir 100 Units/ML 3 ML Pen SUBCUT SCH (21:13)
[2017-05-19] MEDS: Heparin Sodium 5,000 Units/ML Vial SUBCUT SCH ×3 (05:59→21:20)
[2017-05-19] MEDS: Omeprazole 20 MG Cap.CR PO SCH (05:59)
[2017-05-19] MEDS: Hydrochlorothiazide 25 MG Tab PO SCH (08:25)
[2017-05-19] MEDS: Docusate Sodium 100 MG Cap PO SCH ×2 (08:25→20:55)
[2017-05-19] MEDS: Multivitamins,Therapeutic Tab PO SCH (08:25)
[2017-05-19] MEDS: Aspirin 81 MG Tab.EC PO SCH (08:25)
[2017-05-19] MEDS: Acetaminophen 325 MG Tab PO SCH ×3 (08:26→20:51)
[2017-05-19] MEDS: Ascorbic Acid 500 MG Tab PO SCH ×2 (08:29→20:51)
[2017-05-19] MEDS: Calcium Carbonate/Vitamin D3 1250 MG-200 Unit Tab PO SCH ×2 (08:29→17:48)
[2017-05-19] MEDS: Tamoxifen 10 MG Tab PO SCH (08:29)
[2017-05-19] MEDS: Lidocaine 5% 700 MG Patch TOP SCH (08:30)
[2017-05-19] MEDS: Calcium Polycarbophil 625 MG Tab PO SCH (08:30)
[2017-05-19] MEDS: Insulin Aspart 100 Units/ML 3 ML Pen SUBCUT SCH ×6 (08:33→17:48)
[2017-05-19] MEDS: Polyethylene Glycol 3350 Powder 17 GM Packet PO SCH (08:38)
[2017-05-19] MEDS: Amitriptyline 25 MG Tab PO SCH (20:51)
[2017-05-19] MEDS: atorvaSTATin 10 MG Tab PO SCH (20:51)
[2017-05-19] MEDS: traMADol 50 MG Tab PO PRN (20:51)
[2017-05-19] MEDS: Insulin Detemir 100 Units/ML 3 ML Pen SUBCUT SCH (20:54)
[2017-05-20] MEDS: Omeprazole 20 MG Cap.CR PO SCH (06:14)
[2017-05-20] MEDS: Heparin Sodium 5,000 Units/ML Vial SUBCUT SCH ×3 (06:14→21:23)
[2017-05-20] MEDS: Insulin Aspart 100 Units/ML 3 ML Pen SUBCUT SCH ×6 (08:23→17:10)
[2017-05-20] MEDS: Tamoxifen 10 MG Tab PO SCH (08:33)
[2017-05-20] MEDS: Calcium Carbonate/Vitamin D3 1250 MG-200 Unit Tab PO SCH ×2 (08:34→17:09)
[2017-05-20] MEDS: Calcium Polycarbophil 625 MG Tab PO SCH (08:35)
[2017-05-20] MEDS: Aspirin 81 MG Tab.EC PO SCH (08:35)
[2017-05-20] MEDS: Multivitamins,Therapeutic Tab PO SCH (08:35)
[2017-05-20] MEDS: Hydrochlorothiazide 25 MG Tab PO SCH (08:35)
[2017-05-20] MEDS: Acetaminophen 325 MG Tab PO SCH ×3 (08:36→21:18)
[2017-05-20] MEDS: Ascorbic Acid 500 MG Tab PO SCH ×2 (08:36→21:17)
[2017-05-20] MEDS: Polyethylene Glycol 3350 Powder 17 GM Packet PO SCH (08:37)
[2017-05-20] MEDS: Docusate Sodium 100 MG Cap PO SCH ×2 (08:38→21:11)
[2017-05-20] MEDS: Lidocaine 5% 700 MG Patch TOP SCH (08:39)
[2017-05-20] MEDS: Temazepam 15 MG Cap PO PRN (21:15)
[2017-05-20] MEDS: Amitriptyline 25 MG Tab PO SCH (21:16)
[2017-05-20] MEDS: traMADol 50 MG Tab PO PRN (21:17)
[2017-05-20] MEDS: atorvaSTATin 10 MG Tab PO SCH (21:18)
[2017-05-20] MEDS: Insulin Detemir 100 Units/ML 3 ML Pen SUBCUT SCH (21:19)
[2017-05-20] MEDS: Cyclobenzaprine 10 MG Tab PO PRN (21:19)
[2017-05-21] MEDS: Heparin Sodium 5,000 Units/ML Vial SUBCUT SCH ×3 (05:44→21:16)
[2017-05-21] MEDS: Omeprazole 20 MG Cap.CR PO SCH (05:44)
[2017-05-21] MEDS: Acetaminophen 325 MG Tab PO SCH ×3 (09:00→21:11)
[2017-05-21] MEDS: Tamoxifen 10 MG Tab PO SCH (09:00)
[2017-05-21] MEDS: Multivitamins,Therapeutic Tab PO SCH (09:01)
[2017-05-21] MEDS: Ascorbic Acid 500 MG Tab PO SCH ×2 (09:01→21:12)
[2017-05-21] MEDS: Aspirin 81 MG Tab.EC PO SCH (09:01)
[2017-05-21] MEDS: Calcium Carbonate/Vitamin D3 1250 MG-200 Unit Tab PO SCH ×2 (09:01→18:00)
[2017-05-21] MEDS: Calcium Polycarbophil 625 MG Tab PO SCH (09:02)
[2017-05-21] MEDS: Hydrochlorothiazide 25 MG Tab PO SCH (09:03)
[2017-05-21] MEDS: Docusate Sodium 100 MG Cap PO SCH ×2 (09:03→21:13)
[2017-05-21] MEDS: Insulin Aspart 100 Units/ML 3 ML Pen SUBCUT SCH ×6 (09:04→18:00)
[2017-05-21] MEDS: Polyethylene Glycol 3350 Powder 17 GM Packet PO SCH (09:07)
[2017-05-21] MEDS: Lidocaine 5% 700 MG Patch TOP SCH (09:08)
[2017-05-21] MEDS: atorvaSTATin 10 MG Tab PO SCH (21:11)
[2017-05-21] MEDS: Amitriptyline 25 MG Tab PO SCH (21:12)
[2017-05-21] MEDS: Cyclobenzaprine 10 MG Tab PO PRN (21:53)
[2017-05-21] MEDS: Temazepam 15 MG Cap PO PRN (21:53)
[2017-05-21] MEDS: Insulin Detemir 100 Units/ML 3 ML Pen SUBCUT SCH (21:54)
[2017-05-21] MEDS: traMADol 50 MG Tab PO PRN (22:04)
[2017-05-22] MEDS: Heparin Sodium 5,000 Units/ML Vial SUBCUT SCH ×3 (06:35→21:46)
[2017-05-22] MEDS: Omeprazole 20 MG Cap.CR PO SCH (06:35)
[2017-05-22] MEDS: Hydrochlorothiazide 25 MG Tab PO SCH (09:05)
[2017-05-22] MEDS: Aspirin 81 MG Tab.EC PO SCH (09:05)
[2017-05-22] MEDS: Tamoxifen 10 MG Tab PO SCH (09:07)
[2017-05-22] MEDS: Calcium Carbonate/Vitamin D3 1250 MG-200 Unit Tab PO SCH ×2 (09:07→18:21)
[2017-05-22] MEDS: Multivitamins,Therapeutic Tab PO SCH (09:07)
[2017-05-22] MEDS: Ascorbic Acid 500 MG Tab PO SCH ×2 (09:08→20:49)
[2017-05-22] MEDS: Docusate Sodium 100 MG Cap PO SCH ×2 (09:08→20:48)
[2017-05-22] MEDS: Calcium Polycarbophil 625 MG Tab PO SCH (09:08)
[2017-05-22] MEDS: Polyethylene Glycol 3350 Powder 17 GM Packet PO SCH (09:09)
[2017-05-22] MEDS: Lidocaine 5% 700 MG Patch TOP SCH ×2 (09:09→13:43)
[2017-05-22] MEDS: Acetaminophen 325 MG Tab PO SCH ×3 (09:09→20:49)
[2017-05-22] MEDS: Insulin Aspart 100 Units/ML 3 ML Pen SUBCUT SCH ×6 (09:10→18:22)
[2017-05-22] MEDS: Amitriptyline 25 MG Tab PO SCH (20:48)
[2017-05-22] MEDS: atorvaSTATin 10 MG Tab PO SCH (20:50)
[2017-05-22] MEDS: Insulin Detemir 100 Units/ML 3 ML Pen SUBCUT SCH (20:59)
[2017-05-22] MEDS: Temazepam 15 MG Cap PO PRN (21:48)
[2017-05-22] MEDS: Cyclobenzaprine 10 MG Tab PO PRN (21:48)
[2017-05-22] MEDS: traMADol 50 MG Tab PO PRN (21:49)
[2017-05-23] MEDS: Omeprazole 20 MG Cap.CR PO SCH (05:51)
[2017-05-23] MEDS: Heparin Sodium 5,000 Units/ML Vial SUBCUT SCH (05:51)
[2017-05-23] MEDS: Hydrochlorothiazide 25 MG Tab PO SCH (08:27)
[2017-05-23] MEDS: Tamoxifen 10 MG Tab PO SCH (08:27)
[2017-05-23] MEDS: Ascorbic Acid 500 MG Tab PO SCH (08:28)
[2017-05-23] MEDS: Calcium Polycarbophil 625 MG Tab PO SCH (08:28)
[2017-05-23] MEDS: Aspirin 81 MG Tab.EC PO SCH (08:28)
[2017-05-23] MEDS: Calcium Carbonate/Vitamin D3 1250 MG-200 Unit Tab PO SCH (08:29)
[2017-05-23] MEDS: Acetaminophen 325 MG Tab PO SCH (08:29)
[2017-05-23] MEDS: Docusate Sodium 100 MG Cap PO SCH (08:29)
[2017-05-23] MEDS: Multivitamins,Therapeutic Tab PO SCH (08:29)
[2017-05-23] MEDS: Lidocaine 5% 700 MG Patch TOP SCH (08:30)
[2017-05-23] MEDS: Insulin Aspart 100 Units/ML 3 ML Pen SUBCUT SCH ×2 (08:31→08:40)
[2017-05-23 08:35] VITALS: BP 103/55
[2017-05-23] MEDS: Polyethylene Glycol 3350 Powder 17 GM Packet PO SCH (08:59)
--- NOTE | 2017-05-30 15:31 | DISCH ---
BRIEF HISTORY AND PHYSICAL EXAMINATION: Ms. Martinez is a 76-year-old female, admitted under swing bed on May 11, 2017. The patient was admitted for continued therapy, physical and occupational therapy. She was noted to have rib fracture of the left second rib after a fall at home. Upon admission to the swing bed, vital signs reviewed. Documented physical exam unremarkable. Workup done: No blood test done during her swing bed stay. Her sugars have been followed regularly. HOSPITAL COURSE: The patient was admitted under swing bed. Occupational therapy and physical therapy were consulted. Repeat chest x-ray due to the rib fracture, showed no pneumothorax. The patient has not been complaining of shortness of breath. As per her, diabetes has been controlled. She is continued on her Lantus and NovoLog regimen. Her antihypertensives were also continued during her stay. Her Lipitor was also continued for dyslipidemia. The patient has been doing good during her stay in swing bed and it was deemed that she can go back home safely. PHYSICAL EXAMINATION: Vital Signs: On discharge, blood pressure 103/55, heart rate of 91 beats per minute, respirations 20 breaths per minute, oxygen saturation 97%, temperature 98.2. General Appearance: Awake, not in distress. Chest: Symmetric chest expansion. Lungs: Bilateral air entry. Cardiovascular: Regular rate and rhythm. Abdomen: Soft. Normoactive bowel sounds. Extremities: No edema. Good pulses. DISCHARGE PLAN: The patient is stable to be discharged home. Follow up with provider within 1 to 2 weeks from discharge. Ensure regular bowel movements. For pain medication to go back to the emergency room if with emergent health concerns. [facility] /[id number]
== END 2017-05-23 09:15 | disposition home or self-care (01) | DRG 556 ==
LOC: UNDOADMIN 14:58 → DL.MS 14:58
PROVIDERS: ADMIT Internal Medicine; ATTEND Internal Medicine
DX: M25.512 Pain in left shoulder (principal); S22.32XD Fracture of one rib, left side, subsequent encounter for fracture with routine healing; I10 Essential (primary) hypertension; E11.40 Type 2 diabetes mellitus with diabetic neuropathy, unspecified; Z79.4 Long term (current) use of insulin; M81.0 Age-related osteoporosis without current pathological fracture; Z85.3 Personal history of malignant neoplasm of breast; K21.9 Gastro-esophageal reflux disease without esophagitis; Z87.440 Personal history of urinary (tract) infections; E78.5 Hyperlipidemia, unspecified; H54.7 Unspecified visual loss; Z79.82 Long term (current) use of aspirin; Z88.1 Allergy status to other antibiotic agents
CPT/HCPCS: 82962; 97110-GO; 97110-GP; 97112-GP; 97116-GP; 97140-GP; 97162-GP; 97165-GO; 97530-GO; 97535-GO; A9270-GY; J1644; J1815-GY

== ENCOUNTER → 2018-08-14 | Outpatient (CLI) | payer MEDICARE, BC | LOC: DL.LAB 09:43 | PROVIDERS: ATTEND Urology | DX: N39.0 Urinary tract infection, site not specified (principal) | CPT/HCPCS: 81001; 87086 ==

== ENCOUNTER 2019-02-22 08:56 | Emergency (ER) | payer MEDICARE, BC ==
--- NOTE | 2019-02-22 09:10 | EDM.PDOC ---
ED HPI GENERAL MEDICAL PROBLEM - General Chief Complaint: Back Pain or Injury Stated Complaint: NERVE PROBLEMS IN LEGS Time Seen by Provider: 02/22/19 09:09 Source of Information: Reports: Patient, Old Records, RN, RN Notes Reviewed History Limitations: Reports: No Limitations - History of Present Illness INITIAL COMMENTS - FREE TEXT/NARRATIVE: Pt presents to ER from home by POV with c/o a flare up of low back pain with sciatica to the left leg for the past 2 days without any specific injury. Pt reports Hx of chronic low back pain with sciatica. She states that she has had x -rays, CT scans, and MRI's from head to toe. Last night she began to have a severe "catching" pain at the right groin with some pain radiating down the right leg. She denies any fall, injury, or strenuous activity. She has not taken anything for the pain. Pt rates the right groin pain 9/10. The pain is minimal at rest when there is no motion in the right hip. The pain is severe with movement of the Rt hip. She denies any saddle area numbness, loss of bowel or bladder control, or motor weakness. She denies fever, chills, N/V, abdominal pain, dysuria, diarrhea, or constipation. Pt states that her son is a doctor in [place], [place] and he wants her have a CT scan. Onset: Gradual, Unknown/Unsure Duration: Chronic, Getting Worse Location: Reports: Back, Pelvis Quality: Reports: Ache, Sharp Severity: Severe Associated Symptoms: Reports: No Other Symptoms Lower Back Pain Score (Numeric/FACES): 8 - Related Data Allergies Allergy/AdvReac Type Severity Reaction Status Date / Time amoxicillin trihydrate Allergy Rash Verified 02/22/19 09:00 [From Augmentin] metformin Allergy Diarrhea Verified 02/22/19 09:00 oxytetracycline Allergy Rash Verified 02/22/19 09:00 [From Terramycin] oxytetracycline HCl Allergy Rash Verified 02/22/19 09:00 [From Terramycin] potassium clavulanate Allergy Rash Verified 02/22/19 09:00 [From Augmentin] Home Meds: Home Meds Amitriptyline [Elavil] 12.5 mg PO BEDTIME 05/07/17 [History] Ascorbic Acid [Vitamin C] 500 mg PO BID 05/07/17 [History] Aspirin [Adult Low Dose Aspirin EC] 81 mg PO DAILY 05/07/17 [History] Calcium Polycarbophil [Fibercon] 625 mg PO DAILY 05/07/17 [History] Cranberry Ext/C/L. Sporogenes [Azo Cranberry] 1 each PO BID 05/07/17 [History] Insulin Aspart [NovoLOG] 24 units SUBCUT TIDMEALS 05/07/17 [History] Multivitamin [Multi-Vitamin Daily] 1 each PO DAILY 05/07/17 [History] Omeprazole 20 mg PO DAILY 05/07/17 [History] Patient's Own Medication [Ptom] 1 drop EYELF DAILY 05/07/17 [History] Tamoxifen Citrate 20 mg PO DAILY 05/07/17 [History] Valsartan/Hydrochlorothiazide [Valsartan-Hctz 320-25 mg Tab] 0.5 each PO DAILY 05/07/17 [History] atorvaSTATin [Lipitor] 10 mg PO BEDTIME 05/07/17 [History] Insulin Detemir [Levemir Flextouch] 27 unit SQ BEDTIME 02/22/19 [History] Past Medical History HEENT History: Reports: Impaired Vision Cardiovascular History: Reports: High Cholesterol, Hypertension Respiratory History: Reports: None Gastrointestinal History: Reports: GERD Genitourinary History: Reports: Renal Calculus, UTI, 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: Musculoskeletal History: Reports: Arthritis, Back Pain, Chronic, Other (See Below) Other Musculoskeletal History: bursitis to B/L knee Neurological History: Reports: Neuropathy, Diabetic, Vertigo Psychiatric History: Reports: None Endocrine/Metabolic History: Reports: Diabetes, Type II Hematologic History: Reports: None Immunologic History: Reports: None Oncologic (Cancer) History: Reports: Breast Dermatologic History: Reports: None - Infectious Disease History Infectious Disease History: Reports: Shingles - Past Surgical History HEENT Surgical History: Reports: None Cardiovascular Surgical History: Reports: None GI Surgical History: Reports: Appendectomy, Cholecystectomy Female Surgical History: Reports: Hysterectomy Oncologic Surgical History: Reports: Mastectomy Social & Family History - Family History Family Medical History: Noncontributory Neurological: Reports: CVA - Caffeine Use Caffeine Use: Reports: Coffee - Living Situation & Occupation Occupation: Retired ED ROS GENERAL - Review of Systems Review Of Systems: ROS reveals no pertinent complaints other than HPI. ED EXAM,LOWER BACK PAIN/INJURY - Physical Exam Exam: See Below Exam Limited By: No Limitations General Appearance: Alert, WD/WN, No Apparent Distress Head: Atraumatic, Normocephalic Neck: Normal Inspection, Non-Tender, Full Range of Motion Respiratory/Chest: No Respiratory Distress, Lungs Clear, Normal Breath Sounds, No Accessory Muscle Use, Chest Non-Tender Cardiovascular: Normal Peripheral Pulses, Regular Rate, Rhythm, No Edema GI/Abdominal: Normal Bowel Sounds, Soft, Non-Tender, No Organomegaly, No Distention, No Abnormal Bruit, No Mass (Female) Exam: Deferred Rectal (Female) Exam: Deferred Back Exam: Full Range of Motion, Paraspinal Tenderness (Mild lower lumbar regional tenderness, no focal karol tenderness). No: CVA Tenderness (L), CVA Tenderness (R), Vertebral Tenderness Extremities: No Pedal Edema, Normal Capillary Refill, Other (Severe Rt groin pain with right hip ROM, no visible swelling or bruising, no karol crepitus.). No: Joint Swelling, Florencio's Sign, Increased Warmth, Mottled, Pallor, Redness Neurological: Alert, Normal Mood/Affect, Normal Dorsiflexion, CN II-XII Intact, No Motor/Sensory Deficits, Oriented x 3 Skin Exam: Warm, Dry, Intact, Normal Color, No Rash Course - Vital Signs Last Recorded V/S: Last Vital Signs Temp 99.6 F 02/22/19 08:58 Pulse 89 02/22/19 08:58 Resp 18 02/22/19 08:58 BP 149/69 H 02/22/19 08:58 Pulse Ox 99 02/22/19 08:58 - Orders/Labs/Meds Meds: Medications Discontinued Medications Generic Name Dose Route Start Last Admin Trade Name Freq PRN Reason Stop Dose Admin Hydrocodone Bitart/Acetaminophen 1 tab 02/22/19 09:22 02/22/19 09:31 [place] 325-5 Mg PO 02/22/19 09:23 1 tab ONETIME ONE Administration Ondansetron HCl 4 mg 02/22/19 09:23 02/22/19 09:31 Zofran Odt PO 02/22/19 09:24 4 mg ONETIME ONE Administration - Radiology Interpretation Free Text/Narrative:: [facility] Final Radiology Report Call: [phone] assistance Online chat: [email or web address] Name: ERICA GODOY Age: 78Years F Date: 02/22/2019 SSN: -- : [id number] Study: CT SPINE LUMBAR WO Requesting Physician: SANDOVAL GALLEGO Images: [id number] Addl Studies: Provided Clinical History: Rt groin pain Contrast: Without Contrast Medium: Contrast Amount: Contrast Method: Page 1 of 2 PROCEDURE INFORMATION: Exam: CT Lumbar Spine Without Contrast Exam date and time: 02/22/2019 9:45 AM Clinical history: 78 years old, female; Low back pain; Patient HX: HX breast cancer; Additional info: RT groin pain TECHNIQUE: Imaging protocol: Computed tomography images of the lumbar spine without contrast. Radiation optimization: All CT scans at this facility use at least one of these dose optimization techniques: automated exposure control; mA and/or kV adjustment per patient size (includes targeted exams where dose is matched to clinical indication); or iterative reconstruction. COMPARISON: CR SPINE LUMBAR 3 VIEW 12/02/2007 9:12 AM FINDINGS: Vertebrae: There is minimal grade 1 retrolisthesis of T12 on L1, L1 on L2, anterolisthesis grade 1 of L4 on L5. There is no fracture. Discs/Spinal canal/Neural foramina: At T12-L1 there is moderately severe disc space height loss, right paracentral disc osteophyte complex and anterior enthesopathy. There is narrowing of the right lateral recess but likely note limiting stenosis or neural compression. At L1-2 there is moderate disc space height loss with vacuum phenomenon but no stenosis. There is mild facet arthropathy. At L2-3 there is early facet arthropathy. ERICA GODOY | Final Radiology Report CONFIDENTIALITY STATEMENT This report is intended only for use by the referring physician, and only in accordance with law. If you received this in error, call [phone]. Page 2 of 2 At L3-4 there is mild to moderate facet arthropathy and annular bulging with superimposed partially mineralized right foraminal protrusion. This close approximation of the exiting right L3 nerve root without definite compression. Correlate for right L3 radiculopathy. At L4-5, there is greater than 50%height loss, severe facet arthropathy with a right far lateral foraminal partially mineralized disc herniation compressing the exiting right L4 nerve root. There is narrowing of the right lateral recess as well. At L5-S1 there is severe facet arthropathy and left lateralizing partially mineralized disc or disc osteophyte complex with close abutment of the exiting left L5 nerve root. Correlate for left L5 radiculopathy. Stomach and bowel: There is sigmoid diverticulosis without diverticulitis. Soft tissues: Unremarkable. IMPRESSION: Multilevel spondylosis is worse to the right at L4-5 and to the left at L5-S1. See detailed level by level analysis and correlate for distribution specific radiculopathy. Thank you for allowing us to participate in the care of your patient. Dictated and Authenticated by: Juanito Londono MD 02/22/2019 10:10 AM Central Time ([place] & [place]) [facility] Final Radiology Report Call: [phone] assistance Online chat: [email or web address] Name: ERICA GODOY Age: 78Years F Date: 02/22/2019 SSN: -- : 1940 Study: CT PELVIS WO Requesting Physician: SANDOVAL GALLEGO Images: [id number] Addl Studies: Provided Clinical History: low back pain, Rt groin/karol pelvis pain. No specific injury Contrast: Without Contrast Medium: Contrast Amount: Contrast Method: Page 1 of 2 PROCEDURE INFORMATION: Exam: CT Pelvis Without Contrast; Skeletal Exam date and time: 02/22/2019 9:45 AM Clinical history: 78 years old, female; Other: RT groin pain; Prior surgery; Surgery date: 6+ months; Patient HX: HX breast cancer; Additional info: Low back pain, RT groin/karol pelvis pain. No specific injury TECHNIQUE: Imaging protocol: Computed tomography images of the pelvis without contrast. Exam focused on the skeletal structures. Radiation optimization: All CT scans at this facility use at least one of these dose optimization techniques: automated exposure control; mA and/or kV adjustment per patient size (includes targeted exams where dose is matched to clinical indication); or iterative reconstruction. COMPARISON: MR Hip wo Cont Lt 05/12/2016 10:46 AM FINDINGS: Stomach and bowel: There is sigmoid diverticula without diverticulitis. Bladder: There is very mild bladder wall thickening slightly eccentric to the left. This should be followed up. Reproductive: The patient is post hysterectomy. Bones/joints: There is moderate to severe multilevel lumbar facet arthropathy. There is grade 1 anterolisthesis of L4 on L5. Soft tissues: The patient appears post prior abdominal hernia repair. Right paramedian adjacent there is a small fat containing hernia with 2.5 cm neck. No bowel containing hernia or evidence of incarceration identified. No inguinal hernia is identified. IMPRESSION: 1. There is a fat containing right paramedian periumbilical abdominal wall hernia. No inguinal hernia is identified. ERICA GODOY | Final Radiology Report CONFIDENTIALITY STATEMENT This report is intended only for use by the referring physician, and only in accordance with law. If you received this in error, call [phone]. Page 2 of 2 2. Sigmoid diverticulosis without diverticulitis. Thank you for allowing us to participate in the care of your patient. Dictated and Authenticated by: Juanito Londono MD 02/22/2019 10:16 AM Central Time ([place] & [place]) Departure - Departure Time of Disposition: 10:27 Disposition: Home, Self-Care 01 Condition: Good Clinical Impression: Multilevel spondylosis, Lumbar degenerative disc disease, Radiculopathy of lumbosacral region, Bladder wall thickening - Discharge Information *PRESCRIPTION DRUG MONITORING PROGRAM REVIEWED*: No *COPY OF PRESCRIPTION DRUG MONITORING REPORT IN PATIENT MARIANELA: No Instructions: Lumbosacral Radiculopathy, Degenerative Disk Disease Forms: ED Department Discharge Additional Instructions: Rx: Tramadol 50mg Rx: Decadron 4mg Use a cane or walker for stability until the pain improves. Follow up in clinic with your doctor in the next 1 to 2 weeks for recheck. Ask you doctor to review the CT reports of you spinal and bladder findings.
[2019-02-22] MEDS ORDERED: Acetaminophen/HYDROcodone 325-5 MG Tab PO ONE (09:22)
[2019-02-22 09:23] VITALS: BP 149/69; PULSE 89
[2019-02-22] MEDS ORDERED: Ondansetron 4 MG Tab.DIS PO ONE (09:23)
== END 2019-02-22 10:44 | disposition home or self-care (01) ==
LOC: DL.ED 08:56
DX: M47.27 Other spondylosis with radiculopathy, lumbosacral region (principal); M51.16 Intervertebral disc disorders with radiculopathy, lumbar region; N32.9 Bladder disorder, unspecified; E78.00 Pure hypercholesterolemia, unspecified; I10 Essential (primary) hypertension; E11.40 Type 2 diabetes mellitus with diabetic neuropathy, unspecified; K21.9 Gastro-esophageal reflux disease without esophagitis; Z88.0 Allergy status to penicillin; Z88.8 Allergy status to other drugs, medicaments and biological substances; Z88.1 Allergy status to other antibiotic agents; Z79.899 Other long term (current) drug therapy; Z79.82 Long term (current) use of aspirin; Z79.4 Long term (current) use of insulin
CPT/HCPCS: 72131; 72192; 99283; A9270

== ENCOUNTER 2020-02-11 11:25 | Emergency (ER) | payer MEDICARE, BC ==
[2020-02-11 11:48] VITALS: BP 127/59; PULSE 72
--- NOTE | 2020-02-11 11:49 | EDM.PDOC ---
ED HPI GENERAL MEDICAL PROBLEM - General Chief Complaint: Lower Extremity Injury/Pain Stated Complaint: LEG CANCER [id number] Time Seen by Provider: 02/11/20 11:42 Source of Information: Reports: Patient, Old Records, RN, RN Notes Reviewed History Limitations: Reports: No Limitations - History of Present Illness INITIAL COMMENTS - FREE TEXT/NARRATIVE: Patient presents to the ED via personal vehicle with complaints of right hip pain. She states the pain originates in her hip when she is up moving and radiates into her anterior/posterior thigh and into her posterior lower leg. 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 She has a known lesion in the right hip. She is currently receiving chemotherapy and radiation under Dr. Arias; she states her treatments include Ibrance, Faslodex, and Ebixa. She states she has taken Tylenol 1gm x1 dose this morning at 0900 at the instruction of Dr. Arias; she states this provided only m ild relief. She denies any falls or trauma to the area. She does attest to walking up and down her basement steps yesterday (02/11/20), and feels her soreness may be related to that. She denies dysuria, hematuria, nausea, vomiting, saddle paraesthesia, loss of bladder/bowel function, or loss of motor/sensory function. She does attest to loose stool, but this is not new for her since starting treatment. Right Hip Pain Score (Numeric/FACES): 8 - Related Data Allergies Allergy/AdvReac Type Severity Reaction Status Date / Time amoxicillin trihydrate Allergy Rash Verified 02/11/20 11:48 [From Augmentin] metformin Allergy Diarrhea Verified 02/11/20 11:48 oxytetracycline Allergy Rash Verified 02/11/20 11:48 [From Terramycin] oxytetracycline HCl Allergy Rash Verified 02/11/20 11:48 [From Terramycin] potassium clavulanate Allergy Rash Verified 02/11/20 11:48 [From Augmentin] Home Meds: Home Meds Amitriptyline [Elavil] 12.5 mg PO BEDTIME 05/07/17 [History] Ascorbic Acid [Vitamin C] 500 mg PO BID 05/07/17 [History] Aspirin [Adult Low Dose Aspirin EC] 81 mg PO DAILY 05/07/17 [History] Cranberry Ext/C/L. Sporogenes [Azo Cranberry] 1 each PO BID 05/07/17 [History] Insulin Aspart [NovoLOG] 24 units SUBCUT TIDMEALS 05/07/17 [History] Multivitamin [Multi-Vitamin Daily] 1 each PO DAILY 05/07/17 [History] Omeprazole 20 mg PO DAILY 05/07/17 [History] Patient's Own Medication [Ptom] 1 drop EYELF DAILY 05/07/17 [History] Tamoxifen Citrate 20 mg PO DAILY 05/07/17 [History] Valsartan/Hydrochlorothiazide [Valsartan-Hctz 320-25 mg Tab] 0.5 each PO DAILY 05/07/17 [History] atorvaSTATin [Lipitor] 10 mg PO BEDTIME 05/07/17 [History] calcium polycarbophiL [Fibercon] 625 mg PO DAILY 05/07/17 [History] Insulin Detemir [Levemir Flextouch] 27 unit SQ BEDTIME 02/22/19 [History] Acetaminophen [Tylenol Extra Strength] 1,000 mg PO ASDIRECTED PRN 02/11/20 [ History] Palbociclib [Ibrance] 75 mg PO DAILY 02/11/20 [History] Past Medical History HEENT History: Reports: Impaired Vision Cardiovascular History: Reports: High Cholesterol, Hypertension Respiratory History: Reports: None Gastrointestinal History: Reports: GERD Genitourinary History: Reports: Renal Calculus, UTI, 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: Musculoskeletal History: Reports: Arthritis, Back Pain, Chronic, Other (See Below) Other Musculoskeletal History: bursitis to B/L knee Neurological History: Reports: Neuropathy, Diabetic, Vertigo Psychiatric History: Reports: None Endocrine/Metabolic History: Reports: Diabetes, Type II Hematologic History: Reports: None Immunologic History: Reports: None Oncologic (Cancer) History: Reports: Breast Dermatologic History: Reports: None - Infectious Disease History Infectious Disease History: Reports: Shingles - Past Surgical History HEENT Surgical History: Reports: None Cardiovascular Surgical History: Reports: None GI Surgical History: Reports: Appendectomy, Cholecystectomy Female Surgical History: Reports: Hysterectomy Oncologic Surgical History: Reports: Mastectomy Social & Family History - Family History Family Medical History: Noncontributory Neurological: Reports: CVA - Caffeine Use Caffeine Use: Reports: Coffee - Living Situation & Occupation Occupation: Retired Review of Systems - Review of Systems Review Of Systems: Comprehensive ROS is negative, except as noted in HPI. ED EXAM, GENERAL - Physical Exam Exam: See Below Exam Limited By: No Limitations General Appearance: Alert, WD/WN, No Apparent Distress (Female) Exam: Deferred Rectal (Female) Exam: Deferred Back Exam: Normal Inspection, Full Range of Motion. No: CVA Tenderness (L), CVA Tenderness (R) Extremities: Leg Pain (Right lower hip; Radiates to anterior/posterior thigh and posterior lower leg), Limited Range of Motion (To right lower hip). No: Florencio's Sign, Mottled, Pallor, Redness Neurological: Alert, Oriented, CN II-XII Intact Skin Exam: Warm, Dry, Intact, Normal Color, No Rash. No: Ecchymosis, Erythema, Mottled, Pallor, Petechiae, Rash Course - Vital Signs Last Recorded V/S: Last Vital Signs Temp 97.8 F 02/11/20 11:29 Pulse 72 02/11/20 11:29 Resp 18 02/11/20 11:29 BP 127/59 L 02/11/20 11:29 Pulse Ox 98 02/11/20 11:29 - Orders/Labs/Meds Orders: Active Orders 24 hr Category Date Time Status Lumbar Spine 2 or 3V [CR] Urgent Exams 02/11/20 12:29 Taken Labs: Laboratory Tests 02/11/20 02/11/20 02/11/20 Range/Units 12:11 12:11 12:11 WBC 2.5 L (5.0-10.0) 10^3/uL RBC 3.11 L (4.2-5.4) 10^6/uL Hgb 10.6 L (12.0-16.0) g/dL Hct 31.4 L (37.0-47.0) % MCV 101.0 H D (80-100) fL MCH 34.1 H (27.0-34.0) pg MCHC 33.8 (33.0-35.0) g/dL Plt Count 171 (150-450) 10^3/uL Neut % (Auto) 63.3 (42.2-75.2) % Lymph % (Auto) 25.6 (20.5-50.1) % Lucas % (Auto) 7.1 (2-8) % Eos % (Auto) 2.0 (1.0-3.0) % Baso % (Auto) 2.0 H (0.0-1.0) % D-Dimer, Quantitative 186 (0-400) ng/mL Sodium 135 L (136-145) mmol/L Potassium 4.2 (3.5-5.1) mmol/L Chloride 99 (98-107) mmol/L Carbon Dioxide 27 (21-32) mmol/L Anion Gap 13.2 H (7-13) mEq/L BUN 18 (7-18) mg/dL Creatinine 1.15 H (0.55-1.02) mg/dL Est Cr Clr Drug Dosing 37.94 mL/min Estimated GFR (MDRD) 45 BUN/Creatinine Ratio 15.7 (No establ ref range) Glucose 189 H (74-99) mg/dL Lactic Acid (0.4-2.0) mmol/L Calcium 8.8 (8.5-10.1) mg/dL Total Bilirubin 0.4 (0.2-1.0) mg/dL AST 40 H (15-37) U/L ALT 44 (14-59) U/L Alkaline Phosphatase 60 (46-116) U/L C-Reactive Protein < 0.2 (0.0-0.9) mg/dL Total Protein 6.3 L (6.4-8.2) g/dL Albumin 3.3 L (3.4-5.0) g/dL Globulin 3.0 Albumin/Globulin Ratio 1.10 10/21/20 Range/Units 12:11 WBC (5.0-10.0) 10^3/uL RBC (4.2-5.4) 10^6/uL Hgb (12.0-16.0) g/dL Hct (37.0-47.0) % MCV (80-100) fL MCH (27.0-34.0) pg MCHC (33.0-35.0) g/dL Plt Count (150-450) 10^3/uL Neut % (Auto) (42.2-75.2) % Lymph % (Auto) (20.5-50.1) % Lucas % (Auto) (2-8) % Eos % (Auto) (1.0-3.0) % Baso % (Auto) (0.0-1.0) % D-Dimer, Quantitative (0-400) ng/mL Sodium (136-145) mmol/L Potassium (3.5-5.1) mmol/L Chloride (98-107) mmol/L Carbon Dioxide (21-32) mmol/L Anion Gap (7-13) mEq/L BUN (7-18) mg/dL Creatinine (0.55-1.02) mg/dL Est Cr Clr Drug Dosing mL/min Estimated GFR (MDRD) BUN/Creatinine Ratio (No establ ref range) Glucose (74-99) mg/dL Lactic Acid 1.8 (0.4-2.0) mmol/L Calcium (8.5-10.1) mg/dL Total Bilirubin (0.2-1.0) mg/dL AST (15-37) U/L ALT (14-59) U/L Alkaline Phosphatase (46-116) U/L C-Reactive Protein (0.0-0.9) mg/dL Total Protein (6.4-8.2) g/dL Albumin (3.4-5.0) g/dL Globulin Albumin/Globulin Ratio Departure - Departure Time of Disposition: 13:53 Disposition: Home, Self-Care 01 Condition: Good Clinical Impression: Chronic right hip pain - Discharge Information *PRESCRIPTION DRUG MONITORING PROGRAM REVIEWED*: Not Applicable *COPY OF PRESCRIPTION DRUG MONITORING REPORT IN PATIENT MARIANELA: Not Applicable Instructions: Joint Pain, [id number] Forms: ED Department Discharge Additional Instructions: Rx: Tramadol Follow up with Dr. Arias for possible updated MRI - last MRI was in May 2019. Check with his office to see if you can move up your appointment from February 26 to a sooner date. Sepsis Event Note (ED) - Focused Exam Vital Signs: Vital Signs Temp Pulse Resp BP Pulse Ox 02/11/20 11:29 97.8 F 72 18 127/59 L 98 - My Orders Last 24 Hours: My Active Orders 02/11/20 12:29 Lumbar Spine 2 or 3V [CR] Urgent - Assessment/Plan Last 24 Hours: My Active Orders 02/11/20 12:29 Lumbar Spine 2 or 3V [CR] Urgent
[2020-02-11 12:40] LABS: ANION GAP 13.2 mEq/L (7-13); CHLORIDE,CL 99 mmol/L (98-107); SODIUM,NA 135 mmol/L (136-145)
--- NOTE | 2020-02-11 13:18 | CR ---
EXAMINATION: Hip Min 2V or 3V w Pelvis Rt SEX: Female AGE: 79 years CLINICAL HISTORY: 79-year-old female with breast cancer, "metastatic bone disease", and now... RIGHT HIP PAIN. INTERPRETATION: Abnormal. 1. 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 Probable metastatic deposits. Note: These lesions not reported on CT pelvis 22 February 2019. 2. Generally good bone mineral density for age and gender. 3. Symmetric normal spacing of the SI and hip joints without appreciable arthritic degenerative change. 4. No pelvic or hip fracture/dislocation. CONCLUSION: Metastatic bone lesions. No pathologic fracture.
--- NOTE | 2020-02-11 13:54 | CR ---
EXAMINATION: Lumbar Spine 3V SEX: Female AGE: 79 years CLINICAL HISTORY: 79-year-old female with history breast cancer, bone metastasis, and increased PAIN. INTERPRETATION: Abnormal. 1. Anterolisthesis L4 vertebral body relatively increased since CT scan lumbar spine, 22 February 2019. 2. Chronic multilevel lower thoracic and mid/lower lumbar disc disease i.e. interspace narrowing with endplate sclerosis and reactive hypertrophic marginal spondylosis T10-11, T11-12, T12-L1, L2-3, L5-S1 Levels. 3. Reactive arthritic sclerosis posterior articulating facets L5-S1 level. 4. *Focal osteoblastic sclerosis (bony metastasis?) posteriorly body of L1 and anteriorly body L2 that appear to be new since the sagittal images, CT scan lumbar spine 22 February 2019. 5. No other signs of pathologic skeletal lesion, lumbar fracture or dislocation. CONCLUSION: L4 anterolisthesis, evidence chronic multilevel disc disease and hypertrophic spondylosis. Subtle increased osteoblastic density bodies L1 and L2 vertebral since February 2019.
== END 2020-02-11 14:05 | disposition home or self-care (01) ==
LOC: DL.ED 11:25
DX: M25.551 Pain in right hip (principal); G89.29 Other chronic pain; I10 Essential (primary) hypertension; E11.40 Type 2 diabetes mellitus with diabetic neuropathy, unspecified; E78.00 Pure hypercholesterolemia, unspecified; K21.9 Gastro-esophageal reflux disease without esophagitis; M19.90 Unspecified osteoarthritis, unspecified site; Z79.84 Long term (current) use of oral hypoglycemic drugs; Z79.899 Other long term (current) drug therapy; Z79.82 Long term (current) use of aspirin; Z85.3 Personal history of malignant neoplasm of breast; Z88.8 Allergy status to other drugs, medicaments and biological substances; Z88.1 Allergy status to other antibiotic agents
CPT/HCPCS: 36415; 72100; 80053; 83605; 85025; 85379; 86140; 99283